=== PATIENT | female | born 1990 | race Two or more races ===

== ENCOUNTER → 2020-07-13 10:07 | Outpatient (BNVA) | payer OTHER, SELFPAY | PROVIDERS: Visit Provider Advanced Practice Midwife | DX: O34.219 Maternal care for unspecified type scar from previous cesarean delivery (principal); O16.1 Unspecified maternal hypertension, first trimester; O09.291 Supervision of pregnancy with other poor reproductive or obstetric history, first trimester; Z3A.11 11 weeks gestation of pregnancy; Z79.899 Other long term (current) drug therapy | CPT/HCPCS: 99212 ==

== ENCOUNTER 2020-07-20 10:18 | Outpatient (REF) | payer OTHER, SELFPAY ==
[2020-07-20 14:11] LABS: MANUAL DIFF FLAG NO
[2020-07-20 14:19] LABS: Basophils Percent Auto 0.3 % (0-2); Eosinophils Absolute Auto 0.1 X10*3/uL (0.0-0.4); Eosinophils Percent Auto 0.6 % (0-4); Hematocrit 33.8 % (37-47); Hemoglobin 11.1 g/dl (12.0-16.0); Imm Gran Abs Auto 0.05 X10*3/uL (0.00-0.03); Imm Gran Pct Auto 0.4 % (0.0-0.4); Lymphocytes Absolute Auto 2.5 X10*3/uL (1.2-4.9); Mean Corpuscular HGB Conc 32.8 g/dl (31.0-35.0); Mean Corpuscular Hemoglobin 29.1 pg (27.0-33.0); Mean Corpuscular Volume 88.5 fL (80-98); Mean Platelet Volume 11.7 fL (9.4-12.3); Monocytes Absolute Auto 0.8 X10*3/uL (0.1-1.2); Monocytes Percent Auto 5.4 % (2-11); Neutrophils Absolute Auto 10.5 X10*3/uL (2.0-8.3); Neutrophils Percent Auto 75.3 % (45-73); Platelet Count 415 X10*3/uL (160-400); Red Blood Count 3.82 X10*6/uL (4.20-5.50); Red Cell Distribution Width 12.7 % (11.0-16.0)
[2020-07-20 14:48] LABS: Alanine Aminotransferase 21 U/L (0-31); Albumin Level 4.4 g/dL (3.5-5.0); Alkaline Phosphatase 85 U/L (39-117); Anion Gap 18 (12-20); Aspartate Amino Transferase 19 U/L (5-31); Bilirubin Total 0.6 mg/dL (0.0-1.0); Blood Urea Nitrogen 6 mg/dL (9-16); Calcium 9.6 mg/dL (8.4-10.2); Carbon Dioxide 20 mmol/L (22-29); Chloride 103 mmol/L (96-108); Estimated Glomerular Filt Rate > 60; Glucose Random 75 mg/dL (60-115); Potassium 4.1 mmol/l (3.3-5.1); Sodium 137 mmol/L (135-145); Total Protein 7.7 g/dL (6.5-8.0)
[2020-07-20 14:58] LABS: Syphilis Screen Nonreactive (Nonreactive)
[2020-07-20 15:02] LABS: Uric Acid 3.5 mg/dL (2.4-5.7)
[2020-07-20 15:14] LABS: Creatinine Urine 91.75 mg/dL; Protein/Creatinine Ratio, Ur 0.13 (<0.2); Total Protein Urine Random 12 mg/dL (<12)
[2020-07-20 15:16] LABS: Amphetamine Screen Urine Not Detected (Not Detect); Barbiturates, Urine Not Detected (Not Detect); Benzodiazepines Screen Urine Not Detected (Not Detect); Cannabinoid Screen Urine Not Detected (Not Detect); Cocaine Screen Urine Not Detected (Not Detect); Opiate Screen Urine Not Detected (Not Detect); Phencyclidine Screen Urine Not Detected (Not Detect)
[2020-07-20 16:16] LABS: CT PCR NOT DETECTED (Not Detect.); NG PCR NOT DETECTED (Not Detect.)
[2020-07-23 03:40] LABS: ~HepC Num1 0.11 S/CO (0.00-0.79); ~Hepatitis C Antibody Nonreactive (Nonreactive)
[2020-07-23 04:10] LABS: HBsAGNum1 0.19 S/CO (0.00-0.99); HIV AB/AG Nonreactive (Nonreactive); Hepatitis B Surface Antigen Negative (Negative)
[2020-07-23 13:42] LABS: Rubella IgG Antibody 4.18 index
== END 2020-07-20 10:19 | disposition home or self-care (01) ==
LOC: HO.LAB 10:18
PROVIDERS: Visit Provider Advanced Practice Midwife
DX: Z34.90 Encounter for supervision of normal pregnancy, unspecified, unspecified trimester (principal); Z86.79 Personal history of other diseases of the circulatory system
CPT/HCPCS: 36415; 80053; 80307; 84156; 84443; 84550; 85025; 86762; 86780; 86787; 86803; 86850; 86886; 86900; 86901; 87086; 87340; 87389; 87491; 87591

== ENCOUNTER 2020-07-20 11:03 | Outpatient (REF) | payer OTHER, SELFPAY ==
--- NOTE | 2020-07-20 11:08 | US_ITS ---
EXAMINATION: OBSTETRICAL ULTRASOUND, FIRST TRIMESTER HISTORY: 29-year-old at the 12.1 weeks of gestation NT screening COMPARISON: 04/08/2020 TECHNIQUE: Real time transabdominal imaging with color and M-mode Doppler. FINDINGS: A single, live IUP CRL of 60.4 mm c/w 12.4wks is noted. Heart Rate: 153 beats per minute. Normal yolk sac seen. NT was 1.32.mm. NB Present The embryo appears sonographically wnl for this GA. Both maternal ovaries are seen and appear normal. GESTATIONAL AGE: 1. Established GA: 12.1 wks 2. GA from [facility]: 12.4 wks ESTIMATED DATE OF DELIVERY: 1. Established ALBINA: 01/31/2021 2. ALBINA from [facility]: 01/28/2021 US/US OB 1T nuc measure IMPRESSION: 1. Single live IUP 2. Size equals dates 3. NT of 1.32 mm MFM Consultation: I reviewed the ultrasound findings along with significance of NT measurement. The NT of less than 3mm is generally reassuring. However, the sensitivity for T21 detection is only 60%. I reviewed the availability of serum aneuploidy screening which includes cell-free DNA and placental protein based tests. I discussed the sensitivity, false-positive rate, and other limitations associated with each test. I also reviewed the availability of invasive diagnostic tests that are associated small but definite risk of miscarriage. We also reviewed the differences between screening tests and diagnostic tests. After our discussion, she opted for the First trimester screening that is based on cell-free DNA or non-invasive testing (NIPT). The result will be faxed to your office in approximately 7 days. A follow up at 18 weeks for survey has been scheduled. Thank you very much for this referral. Majority of this visit was spent reviewing her care and counselling her in face to face time: Time spent 20 min.
== END 2020-07-20 11:04 | disposition home or self-care (01) ==
LOC: HO.US 11:03
PROVIDERS: PCP Internal Medicine; Visit Provider Advanced Practice Midwife
DX: Z34.90 Encounter for supervision of normal pregnancy, unspecified, unspecified trimester (principal); Z86.79 Personal history of other diseases of the circulatory system; Z36.82 Encounter for antenatal screening for nuchal translucency; Z13.31 Encounter for screening for depression
CPT/HCPCS: 76813; 99212

== ENCOUNTER 2020-08-08 09:29 | Emergency (ER) | payer OTHER, SELFPAY ==
[2020-08-08 10:25] VITALS: BP 167/92; PULSE 100; RESP 20; TEMP 36.6; O2SAT 99; BMI 43.2
--- NOTE | 2020-08-08 10:45 | ED.URI ---
HPI - URI/Sore Throat General Chief Complaint: Weakness Stated Complaint: difficulty breathing Time Seen by Provider: 08/08/20 10:04 Source: patient Mode of arrival: ambulatory Limitations: no limitations History of Present Illness MD elicited complaint: cough, rhinorrhea and other (feels fatigued and short of breath) Pertinent past history: other (14 weeks ) Onset (ago): day(s) (3) Consistency: constant Severity: moderate Description of mucous: clear Able to tolerate fluids by mouth: Yes Exacerbating factors: nothing Relieving factors: nothing Context: sick contacts (daughter with cold as well) Associated symptoms: chills, rhinorrhea, cough and shortness of breath Treatments prior to arrival: other (used her neb machine today) Related Data Home Medications Medication Instructions Recorded Confirmed PNV 153-FA 400 mcg-om3 35 mg-dha tab PO 07/13/20 07/20/20 25 mg-epa 5 mg-fish oil chew tablet amlodipine 10 mg tablet 10 mg PO DAILY 07/13/20 07/20/20 fluticasone propionate 110 2 puff INHALATION BID 07/13/20 07/20/20 mcg/actuation HFA aerosol inhaler loratadine 10 mg tablet 10 mg PO DAILY 07/13/20 07/20/20 sertraline 50 mg tablet 50 mg PO DAILY 07/13/20 07/20/20 Previous Rx's Medication Instructions Recorded aspirin 81 mg tablet,delayed 162 mg PO DAILY #60 tab 07/20/20 release amoxicillin 500 mg PO BID 7 Days #14 cap 08/08/20 Allergies Allergy/AdvReac Type Severity Reaction Status Date / Time fluticasone [Flovent HFA] Allergy Unknown face Verified 07/20/20 10:04 numbness Review of Systems Review of Systems: Constitutional : no Fever, positive Chills, positive fatigue, positive Malaise ENT/Mouth : no sore throat, positive runny nose Eyes: No Discharge Cardiovascular : No Chest Pain, pos SOB Respiratory : pos Cough, No Sputum Gastrointestinal : No Nausea, No Vomiting, No Diarrhea Genitourinary : No Dysuria, No Urinary Frequency Musculoskeletal : positive Myalgia Skin : No rash Neuro : No Headache PMFSH Past Medical History Attestation statement: The following information was validated with the patient. Medical History History of anxiety History of asthma History of depression Hx of primary hypertension Morbid obesity with BMI of 40.0-44.9, adult Surgical History Hx of section Hx of cholecystectomy Hx of removal of cyst Hx of wisdom tooth extraction Family History Family History Mother Hx of primary hypertension History of fibromyalgia History of anxiety Hx of irritable bowel syndrome Family/Other Hx of primary hypertension History of posttraumatic stress disorder (PTSD) Family history of MS (multiple sclerosis) Maternal Grandmother Hx of diabetes mellitus Maternal Grandfather Hx of cancer of lung Paternal Grandfather Hx of aortic valve replacement, mechanical Hx of cardiac pacemaker Paternal Grandmother Hx of primary hypertension Brother No problems noted. Sister No problems noted. Social History Social History Household Members: Spouse and Children Housing: Apartment Alcohol intake: former Smoking Status: Never smoker Substance Use Type: Amphetamines and Marijuana Advance Directives: No Advance Directives Information Provided: Yes Current occupational status: employed Current occupation: [employer] Current occupational exposures/hazards: No Physical Exam Vital Signs: Vital Signs: Last Vital Signs Temp 97.9 F 08/08/20 10:25 Pulse 100 08/08/20 10:25 Resp 20 08/08/20 10:25 BP 167/92 H 08/08/20 10:25 Pulse Ox 99 08/08/20 10:25 Body Mass Index 43.2 Appearance: Alert. Oriented X3. No acute distress. anxious Eyes: Pupils equal, round and reactive to light. ENT: Pharynx normal. Neck: Normal inspection. Neck supple. CVS: Normal heart rate and rhythm. Pulses normal. Respiratory: No respiratory distress. Breath sounds normal. Abdomen: Soft and nontender. Skin: Skin warm and dry. Normal skin color. Normal skin turgor. Extremities: No lower extremity edema. No calf ttp Neuro: Oriented X 3. No motor deficit. No sensory deficit. Course Course Course Narrative: no hypoxia, feels much better, will treat as sinus infection Procedures Procedure Narrative Procedure Narrative: transabdominal bedside US by me shows single viable IUP with cardiac activity as well as movement MDM - URI/Sore Throat MDM Narrative Medical decision making narrative: 30 yo female with asthma 14 weeks here with URI - daughter has cold as well, had COVID swab but is taking 1 week to result, at this time given complaints will obtain UA, CXR, covid/flu swab - she is not hypoxic, I do not hear wheezes, will repeat BP as well though early for pre-eclampsia, no edema LE, no chest pain doubt PE seems more viral in nature Lab Data Labs: Lab Results 08/08/20 08/08/20 Range/Units 11:24 11:24 Urine Color YELLOW Urine Appearance CLEAR Urine pH 7.0 (5.0-8.0) Ur Specific [place] 1.010 (1.005-1.025) Urine Protein NEG (NEG-TRACE) MG/DL Urine Glucose (UA) NEG (NEG) MG/DL Urine Ketones NEG (NEG) MG/DL Urine Blood NEG (NEG) Urine Nitrite NEG (NEG) Ur Leukocyte Esterase NEG (NEG) Coronavirus (PCR) NEGATIVE (Negative) Influenza Type A (PCR) NEGATIVE (Negative) Influenza Type B (PCR) NEGATIVE (Negative) RSV RNA Qual (PCR) NEGATIVE (Negative) Discharge Plan Discharge Clinical Impression: Acute viral syndrome Sinusitis Qualifiers: Sinusitis location: unspecified location Chronicity: acute Recurrence: non-recurrent Qualified Code(s): J01.90 - Acute sinusitis, unspecified Patient Disposition: Home, Self-Care Instructions: Sinusitis (ED) Additional Instructions: return to ED for any worsening symptoms or concerns it is safe to use saline washes and benadryl for congestion Prescriptions: New amoxicillin 500 mg capsule 500 mg PO BID 7 Days Qty: 14 RF: 0 No Action aspirin [Adult Low Dose Aspirin] 81 mg tablet,delayed release (DR/EC) 162 mg PO DAILY Qty: 60 RF: 6 Flovent HFA 110 mcg/actuation HFA aerosol inhaler 2 puff inhalation BID RF: 0 loratadine [Claritin] 10 mg tablet 10 mg PO DAILY RF: 0 sertraline 50 mg tablet 50 mg PO DAILY RF: 0 Gummies 400 mcg-35 mg- 25 mg-5 mg tablet,chewable PO RF: 0 amlodipine 10 mg tablet 10 mg PO DAILY RF: 0 Referrals: Evelyn Griffith MD [Primary Care Provider] - 2 days (if not better) Stand Alone Forms: Work/School Release
--- NOTE | 2020-08-08 10:56 | XR_ITS ---
EXAMINATION: XR CHEST CLINICAL INFORMATION: Cough. COMPARISON: 02/26/2020 portable chest. TECHNIQUE: Frontal view of the chest was obtained. FINDINGS: No significant abnormality is noted involving the heart, lungs, mediastinum, bony thorax or soft tissues. XR/XR chest 1V IMPRESSION: No acute cardiopulmonary process.
[2020-08-08] MEDS: Acetaminophen 325 MG TABLET 650 MG PO (11:13)
[2020-08-08 11:35] LABS: Glucose Urine UA NEG (NEG); Leukocyte Esterase Urine NEG (NEG); Nitrite Urine NEG (NEG); Urine Blood NEG (NEG); Urine Ketones NEG (NEG); Urine Protein NEG (NEG-TRACE)
[2020-08-08 11:39] LABS: Appearance Urine CLEAR; Color Urine YELLOW; UACC Culture Trigger NO
[2020-08-08 12:00] VITALS: BP 146/93; PULSE 95; RESP 20; TEMP 36.6; O2SAT 99
[2020-08-08 12:11] LABS: Influenza A PCR NEGATIVE (Negative); Influenza B PCR NEGATIVE (Negative); Resp Syncy Virus RNA Qual PCR NEGATIVE (Negative); SARS COV2 PCR INHOUSE NEGATIVE (Negative)
== END 2020-08-08 12:51 | disposition home or self-care (01) ==
PROVIDERS: Emergency Provider Emergency Medicine; PCP Internal Medicine
DX: O26.91 Pregnancy related conditions, unspecified, first trimester (principal); B34.9 Viral infection, unspecified; J01.90 Acute sinusitis, unspecified; R05 Cough; Z3A.14 14 weeks gestation of pregnancy; Z20.828 Contact with and (suspected) exposure to other viral communicable diseases; Z79.899 Other long term (current) drug therapy
CPT/HCPCS: 0241U; 71045; 81003; 99284

== ENCOUNTER → 2020-08-21 11:46 | Outpatient (BNVA) | payer OTHER, SELFPAY | PROVIDERS: PCP Internal Medicine; Visit Provider Advanced Practice Midwife | DX: Z76.89 Persons encountering health services in other specified circumstances (principal) ==

== ENCOUNTER 2020-08-31 09:28 | Outpatient (REF) | payer OTHER, SELFPAY ==
[2020-08-31 13:28] LABS: Glucose Urine UA NEG (NEG); Leukocyte Esterase Urine NEG (NEG); Nitrite Urine NEG (NEG); Specific Gravity - Urine 1.025 (1.005-1.025); Urine Blood NEG (NEG); Urine Ketones 5 MG/DL (NEG); Urine Protein NEG (NEG-TRACE)
[2020-08-31 13:29] LABS: Glucose 1 Hour 110 mg/dL
[2020-08-31 13:37] LABS: Appearance Urine HAZY; Color Urine YELLOW
[2020-08-31 13:38] LABS: Alanine Aminotransferase 14 U/L (0-31); Aspartate Amino Transferase 17 U/L (5-31); Blood Urea Nitrogen 5 mg/dL (9-16); Estimated Glomerular Filt Rate > 60
== END 2020-08-31 09:29 | disposition home or self-care (01) ==
LOC: HO.LAB 09:28
PROVIDERS: Absent Provider Advanced Practice Midwife; Visit Provider Advanced Practice Midwife
DX: O09.299 Supervision of pregnancy with other poor reproductive or obstetric history, unspecified trimester (principal); Z86.79 Personal history of other diseases of the circulatory system; Z86.59 Personal history of other mental and behavioral disorders; Z98.891 History of uterine scar from previous surgery
CPT/HCPCS: 81003; 82565; 82951; 84450; 84460; 84520; 86850; 86870; 86885; 86901; 99212

== ENCOUNTER → 2020-09-13 09:49 | Outpatient (BNVA) | payer OTHER, SELFPAY | PROVIDERS: Visit Provider Obstetrics & Gynecology | DX: Z34.90 Encounter for supervision of normal pregnancy, unspecified, unspecified trimester (principal) | CPT/HCPCS: 99212 ==

== ENCOUNTER 2020-09-27 09:42 | Outpatient (REF) | payer OTHER, SELFPAY ==
[2020-09-27 12:50] LABS: TSH reflex Free T4 (Prenatal) 0.72 mIU/mL (0.32-4.0)
== END 2020-09-27 09:43 | disposition home or self-care (01) ==
LOC: HO.LAB 09:42
PROVIDERS: PCP Family Medicine; Visit Provider Advanced Practice Midwife
DX: O09.899 Supervision of other high risk pregnancies, unspecified trimester (principal); Z67.91 Unspecified blood type, Rh negative
CPT/HCPCS: 36415; 81003; 86850; 99212

== ENCOUNTER 2020-09-28 09:40 | Outpatient (REF) | payer OTHER, SELFPAY ==
--- NOTE | 2020-09-28 09:46 | US_ITS ---
EXAMINATION: US OBSTETRICAL CLINICAL INFORMATION: 30-year-old at 22.5 weeks of gestation Suspected anomaly COMPARISON: 08/08/2020 TECHNIQUE: Real-time transabdominal ultrasound was performed using C1-5 megahertz transducer. FINDINGS: A single, active, fetus is seen in transverse presentation. The placenta is posterior without previa, and the amniotic fluid volume is wnl. MEASUREMENTS: 1. Biparietal Diameter: 5.3 cm; 22.0 wks 2. Occipital Frontal Diameter: 7.2 cm 3. Head Circumference: 20.1 cm; 22.3 wks 4. Abdominal Circumference: 17.7 cm; 22.5 wks 5. Femur Length: 4.2 cm; 23.4 wks 6. Humerus Length: 3.83 cm; 23.4 wks 7. Tibia Length: 3.8 cm; 24.3 wks 8. Ulna Length: 3.8 cm; 5.1 wks 9. Lateral ventricle: O.42 cm 10. Cerebellum: 2.3 cm; 22.5 wks 11. Cisterna Magna: O.51 cm 12. Nuchal Fold: 3.9 mm 13. Heart Rate: 140 beats per minute Rt ovary: normal Lt ovary: Unable to visualize Cervical length 3.9 cm on T/A. GESTATIONAL AGE: 1. Established GA: 22.1 wks 2. GA from [facility]: 22.5 wks ESTIMATED DATE OF DELIVERY: 1. Established ALBINA: 01/27/2021 2. ALBINA from [facility]: 01/31/2021 ANATOMY: Anatomic survey was limited due to position. Evaluation of the four-chamber view, ventricular septum, 3 vessel trachea, kidneys, spine were suboptimal. The visualized anatomy includes but not limited to: 1. Cranium: Normal 2. Intracranial anatomy: cavum septum pellucidi, lateral ventricles, choroid plexus, cerebellum, posterior fossa, third and fourth ventricles. 3. face: orbits, lip/palate, profile, nasal bone 4. Heart: foramen ovale, pulmonary vein, left and right outflow tracts, three-vessel view, 3 vessel trachea view, aortic and ductal arches, situs.. 5. Diaphragm: Normal 6. Abdominal wall: Normal 7. Cord Insertion: Normal 8. Spine: Limited 9. Stomach: Normal size and shape 10. Right Kidney: Limited 11. Left Kidney: Limited 12. 3 vessel cord: Normal 13. Upper extremity: Open hands, fifth digit. 14. Lower extremity: Tibia, fibula, bilateral feet. 15. Bladder: Normal 16. Genitalia: Male, patient aware US/US OB /maternal detail IMPRESSION: 1. Single, living, intrauterine with appropriate biometry. 2. Normal survey DISCUSSION: I reviewed today's ultrasound findings. We discussed the limitations of ultrasound in diagnosing aneuploidy and other congenital abnormalities. I reviewed the differences between screening test and diagnostic test. Amniocentesis was discussed and declined. She was informed that the baseline incidence of congenital abnormalities is approximately 3-5%. Not all these conditions are diagnosable in utero. RECOMMENDATIONS: 1. Follow-up in 2 weeks has been scheduled. Thank you for allowing me to participate in her care. Total time: 20 minutes (2, 10, 8)
== END 2020-09-28 09:41 | disposition home or self-care (01) ==
LOC: HO.US 09:40
PROVIDERS: PCP Emergency Medicine; Visit Provider Advanced Practice Midwife
DX: O35.9XX0 Maternal care for (suspected) fetal abnormality and damage, unspecified, not applicable or unspecified (principal); O26.892 Other specified pregnancy related conditions, second trimester; Z67.91 Unspecified blood type, Rh negative; O99.342 Other mental disorders complicating pregnancy, second trimester; F99 Mental disorder, not otherwise specified; Z3A.22 22 weeks gestation of pregnancy
CPT/HCPCS: 76811

== ENCOUNTER → 2020-10-11 10:29 | Outpatient (BNVA) | payer OTHER, SELFPAY | PROVIDERS: PCP Family Medicine; Visit Provider Advanced Practice Midwife | DX: Z34.92 Encounter for supervision of normal pregnancy, unspecified, second trimester (principal) | CPT/HCPCS: 81003; 99212 ==

== ENCOUNTER 2020-10-12 09:12 | Outpatient (REF) | payer OTHER, SELFPAY ==
--- NOTE | ~2020-10-12 | US_ITS ---
EXAMINATION: OBSTETRICAL ULTRASOUND, Follow up HISTORY: 30-year-old at the 24.1 weeks of gestation Follow-up survey COMPARISON: 09/28/2019 TECHNIQUE: Real time transabdominal imaging with color and M-mode Doppler. PRESENTATION: Breech PLACENTA LOCATION: Posterior without previa AMNIOTIC FLUID: Normal MEASUREMENTS: 1. Biparietal Diameter: 5.92 cm; 24.2 wks 2. Head Circumference: 23.1 cm; 25.2 wks 3. Abdominal Circumference: 20.6 cm; 25.2 wks 4. Femur Length: 4.7 cm; 25.6 wks 5. Heart Rate: 138 beats per minute WEIGHT: Estimated weight is 798 grams (1 lbs 12 oz) -- 90 %. Bilateral pyelectasis ease were noted. The both measured approximately 0 7 mm. No evidence of hydroureter. Normal urinary bladder. Normal views of lateral cerebral ventricle, profile, nose/lips, 4ch view, LVOT, RVOT, spine. GESTATIONAL AGE: 1. Established GA: 24.1 wks 2. GA from [facility]: 25.2 wks ESTIMATED DATE OF DELIVERY: 1. Established ALBINA: 01/31/2021 2. ALBINA from [facility]: 01/23/2021 US/US OB follow up IMPRESSION: 1. A single fetus with appropriate interval growth. 2. Bilateral pyelectasis ease were noted. No evidence of hydronephrosis. 3. Previously limited views of the anatomy were seen as listed above. I reviewed the limitations of ultrasound in diagnosing aneuploidy and other congenital abnormalities. Amniocentesis was again reviewed and she declined. 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 I reviewed the nature, scope and approximate prognosis and management of UPJ reflux. I reassured her that the more than 90% UPJ reflux will resolve spontaneously either before delivery or within first 3 months of life. She was informed that the baseline instance of congenital abnormalities and defects in the general population is approximately 3-5%. Not all these conditions are diagnosable in utero. RECOMMENDATIONS: 1. f/u in approximately 4 weeks for growth and evaluation pyelectasis (scheduled) Thank you very much for this referral. Total time 30 (5,18,7) minutes.
== END 2020-10-12 09:13 | disposition home or self-care (01) ==
LOC: HO.US 09:12
PROVIDERS: PCP Family Medicine; Visit Provider Advanced Practice Midwife
DX: O09.899 Supervision of other high risk pregnancies, unspecified trimester (principal); Z3A.00 Weeks of gestation of pregnancy not specified
CPT/HCPCS: 76816

== ENCOUNTER → 2020-10-19 09:22 | Outpatient (BNVA) | payer OTHER, SELFPAY | PROVIDERS: PCP Family Medicine; Visit Provider Advanced Practice Midwife | DX: O09.299 Supervision of pregnancy with other poor reproductive or obstetric history, unspecified trimester (principal); Z86.79 Personal history of other diseases of the circulatory system | CPT/HCPCS: 99212 ==

== ENCOUNTER → 2020-10-25 10:27 | Outpatient (BNVA) | payer OTHER, SELFPAY | PROVIDERS: PCP Family Medicine; Visit Provider Obstetrics & Gynecology | DX: O09.292 Supervision of pregnancy with other poor reproductive or obstetric history, second trimester (principal); O34.211 Maternal care for low transverse scar from previous cesarean delivery; O99.342 Other mental disorders complicating pregnancy, second trimester; F41.8 Other specified anxiety disorders; O16.2 Unspecified maternal hypertension, second trimester; O99.212 Obesity complicating pregnancy, second trimester; E66.9 Obesity, unspecified; Z3A.26 26 weeks gestation of pregnancy; Z79.899 Other long term (current) drug therapy | CPT/HCPCS: 99212 ==

== ENCOUNTER 2020-10-30 08:54 | Outpatient (REF) | payer OTHER, SELFPAY ==
[2020-10-30 11:29] LABS: Glucose 1 Hour 125 mg/dL
== END 2020-10-30 08:55 | disposition home or self-care (01) ==
LOC: HO.LAB 08:54
PROVIDERS: Visit Provider Obstetrics & Gynecology
DX: Z34.92 Encounter for supervision of normal pregnancy, unspecified, second trimester (principal)
CPT/HCPCS: 36415; 82951

== ENCOUNTER → 2020-11-08 11:06 | Outpatient (BNVA) | payer OTHER, SELFPAY | PROVIDERS: Visit Provider Obstetrics & Gynecology | DX: Z34.92 Encounter for supervision of normal pregnancy, unspecified, second trimester (principal) | CPT/HCPCS: 99212 ==

== ENCOUNTER 2020-11-09 09:33 | Outpatient (REF) | payer OTHER, SELFPAY ==
--- NOTE | ~2020-11-09 | US_ITS ---
EXAMINATION: OBSTETRICAL ULTRASOUND, Follow up HISTORY: 30-year-old at the 28.1 weeks of gestation Size date discrepancy pyelectasis COMPARISON: 10/12/2020 TECHNIQUE: Real time transabdominal imaging with color and M-mode Doppler. PRESENTATION: Vertex PLACENTA LOCATION: Posterior without previa AMNIOTIC FLUID: Within normal limits MEASUREMENTS: 1. Biparietal Diameter: 7.4 cm; 29.4 wks 2. Head Circumference: 26.23 cm; 28.4 wks 3. Abdominal Circumference: 25.29 cm; 29.4 wks 4. Femur Length: 5.5 cm; 29.2 wks 5. Heart Rate: 140 beats per minute Small fibroid 3.3 x 1.0 x 2.0 cm WEIGHT: EFW: 1369 grams (3 lbs 0 oz) -- 81 %. Right renal pelvis is measuring 6 mm in the left 5 mm. Ureters are not visible. Urinary bladder is within normal limits. The finding is suggestive of UPJ reflux. BIOPHYSICAL PROFILE: Motion: 2 Tone: 2 Breathin Amniotic Fluid: 2 Total score: 8/8 GESTATIONAL AGE: 1. Established GA: 28.1 wks 2. GA from [facility]: 29.2 wks ESTIMATED DATE OF DELIVERY: 1. Established ALBINA: 01/31/2021 2. ALBINA from [facility]: 01/23/2021 US/US OB follow up IMPRESSION: 1. A single active fetus in vertex presentation 2. Size equals dates 3. Persistent bilateral pyelectasis ease. 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 Small fibroid I reviewed today's findings. The pyelectasis is appears stable. There is no evidence of hydroureter. Today's ultrasound findings are suggestive of UPJ reflux. We reviewed the approximate prognosis and management of UPJ reflux during last visit. In all likelihood that pediatric renal ultrasound may be indicated. For now she is to return in 4 weeks. Thank you very much for this referral. Visiting time 30 minutes. Majority of this visit was spent reviewing and coordinating her care.
== END 2020-11-09 09:34 | disposition home or self-care (01) ==
LOC: HO.US 09:33
PROVIDERS: Visit Provider Advanced Practice Midwife
DX: O26.843 Uterine size-date discrepancy, third trimester (principal); O99.891 Other specified diseases and conditions complicating pregnancy; N13.30 Unspecified hydronephrosis; O09.891 Supervision of other high risk pregnancies, first trimester; Z3A.28 28 weeks gestation of pregnancy
CPT/HCPCS: 76816

== ENCOUNTER → 2020-11-28 10:49 | Outpatient (BNVA) | payer OTHER, SELFPAY | PROVIDERS: Visit Provider Obstetrics & Gynecology | DX: Z34.92 Encounter for supervision of normal pregnancy, unspecified, second trimester (principal); Z3A.30 30 weeks gestation of pregnancy | CPT/HCPCS: 90471; 99212 ==

== ENCOUNTER 2020-12-07 08:50 | Outpatient (REF) | payer OTHER, SELFPAY ==
--- NOTE | ~2020-12-07 | US_ITS ---
EXAMINATION: OBSTETRICAL ULTRASOUND, Follow up HISTORY: 21-year-old at 32.1 weeks of gestation pyelectasis Size date discrepancy COMPARISON: 11/09/2020 TECHNIQUE: Real time transabdominal imaging with color and M-mode Doppler. PRESENTATION: Breech PLACENTA LOCATION: Posterior without previa AMNIOTIC FLUID: DARIO 27.1 cm MEASUREMENTS: 1. Biparietal Diameter: 8.3 cm; 33.2 wks 2. Head Circumference: 31.1 cm; 34.6 wks 3. Abdominal Circumference: 29.1 cm; 33.1 wks 4. Femur Length: 6.3 cm; 32.4 wks 5. Heart Rate: 129 beats per minute WEIGHT: EFW: 2119 grams (4 lbs 11 oz) -- 70 %. BIOPHYSICAL PROFILE: Motion: 2 Tone: 2 Breathin Amniotic Fluid: 2 Total score: 8/8 Right renal pelvis measured 6 mm and the left 5 mm. These are stable findings compared to previous exam. No hydroureter or caliectasis noted. Normal urinary bladder. GESTATIONAL AGE: 1. Established GA: 32.1 wks 2. GA from [facility]: 33.4 wks ESTIMATED DATE OF DELIVERY: 1. Established ALBINA: 01/31/2021 2. ALBINA from [facility]: 01/21/2021 US/US OB follow up IMPRESSION: 1. A single active fetus is in breech presentation 2. Size equals dates 3. Polyhydramnios with DARIO of 27.1 cm. 4. BPP score 8/8 I informed the patient that the renal pelvises sees are stable and measuring within normal range for this gestational age. However the DARIO is increased. The majority of polyhydramnios cases are a normal variant and idiopathic. The most common etiology is maternal glucose intolerance. Her 1 hour GLT is to be done today. Thank you very much for this referral. At this time follow-up ultrasound has not been scheduled. Total time 20 minutes. The time spent was devoted to counseling the patient about the disease and diagnosis, coordinating care including reviewing her records, pertinent lab data and studies, as well as discussing diagnostic evaluation and workup, plan therapeutic interventions and future disposition of care. This includes any additional research needed to obtain further information in formulating the plan of care of this patient. This note was generated with a voice recognition program. Please excuse any errors which may have been overlooked during my review of this note. Sometimes these errors may affect the content or meaning of a given sentence.
[2020-12-07 10:36] LABS: MANUAL DIFF FLAG NO
[2020-12-07 10:43] LABS: Basophils Percent Auto 0.2 % (0-2); Eosinophils Absolute Auto 0.1 X10*3/uL (0.0-0.4); Eosinophils Percent Auto 0.4 % (0-4); Hematocrit 29.6 % (37-47); Hemoglobin 9.8 g/dl (12.0-16.0); Imm Gran Abs Auto 0.11 X10*3/uL (0.00-0.03); Imm Gran Pct Auto 0.7 % (0.0-0.4); Lymphocytes Percent Auto 13.8 % (20-40); Mean Corpuscular HGB Conc 33.1 g/dl (31.0-35.0); Mean Corpuscular Volume 84.6 fL (80-98); Mean Platelet Volume 10.8 fL (9.4-12.3); Monocytes Percent Auto 6.5 % (2-11); Neutrophils Absolute Auto 11.6 X10*3/uL (2.0-8.3); Neutrophils Percent Auto 78.4 % (45-73); Platelet Count 451 X10*3/uL (160-400); Red Cell Distribution Width 14.1 % (11.0-16.0); White Blood Count 14.8 X10*3/uL (4.8-10.8)
[2020-12-07 11:02] LABS: Glucose 1 Hour PP 50gm Dose 103 mg/dL (60-140)
[2020-12-07 11:24] LABS: Syphilis Screen Nonreactive (Nonreactive)
== END 2020-12-07 08:51 | disposition home or self-care (01) ==
LOC: HO.US 08:50
PROVIDERS: Absent Provider Obstetrics & Gynecology; PCP Internal Medicine; Visit Provider Advanced Practice Midwife
DX: O35.8XX0 Maternal care for other (suspected) fetal abnormality and damage, not applicable or unspecified (principal); Z3A.32 32 weeks gestation of pregnancy
CPT/HCPCS: 36415; 76816; 85025; 86780

== ENCOUNTER → 2020-12-12 10:44 | Outpatient (BNVA) | payer OTHER, SELFPAY | PROVIDERS: PCP Internal Medicine; Visit Provider Obstetrics & Gynecology | DX: O40.9XX0 Polyhydramnios, unspecified trimester, not applicable or unspecified (principal); O09.899 Supervision of other high risk pregnancies, unspecified trimester; O35.8XX0 Maternal care for other (suspected) fetal abnormality and damage, not applicable or unspecified; Z86.79 Personal history of other diseases of the circulatory system | CPT/HCPCS: 81003; 99212 ==

== ENCOUNTER 2020-12-14 11:03 | Outpatient (REF) | payer OTHER, SELFPAY ==
--- NOTE | ~2020-12-14 | US_ITS ---
EXAMINATION: US OBSTETRICAL (BIOPHYSICAL PROFILE) CLINICAL INFORMATION: A 30-year-old at the 33.1 weeks of gestation Polyhydramnios COMPARISON: 12/07/2020 TECHNIQUE: Biophysical profile is performed over 30 minutes with assessment of breathing, gross body movement, tone, and qualitative amniotic fluid volume. FINDINGS: POSITION: Breech PLACENTA: Posterior without previa AMNIOTIC FLUID INDEX: 25.0 cm CARDIAC ACTIVITY: 128 beats per minute BIOPHYSICAL PROFILE: Motion: 2 Tone: 2 Breathin Amniotic Fluid: 2 The total biophysical score is 8/8 US/US OB biophysical profile IMPRESSION: 1. Single intrauterine gestation in breech position. 2. Reassuring BPP 3. DARIO is increased but stable. Patient reports the that she had normal 1 hour GLT. EFW last week corresponded to 70th percentile. Repeat biometry will was not done today. She reports active movements. Thank you for allowing me to participate in her care. Recommendation: 1. Continue weekly testing (scheduled) 2. Repeat EFW next week. This note was generated with a voice recognition program. Please excuse any errors which may have been overlooked during my review of this note. Sometimes these errors may affect the content or meaning of a given sentence.
== END 2020-12-14 11:04 | disposition home or self-care (01) ==
LOC: HO.US 11:03
PROVIDERS: Visit Provider Obstetrics & Gynecology
DX: O40.3XX0 Polyhydramnios, third trimester, not applicable or unspecified (principal); Z3A.33 33 weeks gestation of pregnancy
CPT/HCPCS: 76819

== ENCOUNTER → 2020-12-18 08:55 | Outpatient (BNVA) | payer OTHER, SELFPAY | PROVIDERS: Visit Provider Advanced Practice Midwife | DX: Z13.89 Encounter for screening for other disorder (principal) | CPT/HCPCS: 81003; 99212 ==

== ENCOUNTER → 2021-01-02 09:07 | Outpatient (BNVA) | payer OTHER, SELFPAY | PROVIDERS: PCP Internal Medicine; Visit Provider Advanced Practice Midwife | DX: O14.95 Unspecified pre-eclampsia, complicating the puerperium (principal); Z39.2 Encounter for routine postpartum follow-up; Z3A.35 35 weeks gestation of pregnancy | CPT/HCPCS: 99212 ==

== ENCOUNTER → 2021-01-30 09:45 | Outpatient (BNVA) | payer OTHER, SELFPAY | PROVIDERS: PCP Internal Medicine; Visit Provider Advanced Practice Midwife | DX: Z39.2 Encounter for routine postpartum follow-up (principal); O14.95 Unspecified pre-eclampsia, complicating the puerperium; E66.01 Morbid (severe) obesity due to excess calories | CPT/HCPCS: 99212 ==

== ENCOUNTER → 2021-02-08 08:44 | Outpatient (BNVA) | payer OTHER, SELFPAY | PROVIDERS: PCP Internal Medicine; Visit Provider Physician Assistant ==

== ENCOUNTER 2021-02-26 06:38 | Outpatient (REF) | payer OTHER, SELFPAY ==
[2021-02-26 07:11] LABS: Basophils Percent Auto 0.4 % (0-2); Eosinophils Absolute Auto 0.3 X10*3/uL (0.0-0.4); Eosinophils Percent Auto 2.8 % (0-4); Hematocrit 33.8 % (37-47); Hemoglobin 10.9 g/dl (12.0-16.0); Imm Gran Abs Auto 0.03 X10*3/uL (0.00-0.03); Imm Gran Pct Auto 0.3 % (0.0-0.4); Lymphocytes Absolute Auto 2.5 X10*3/uL (1.2-4.9); Lymphocytes Percent Auto 25.3 % (20-40); MANUAL DIFF FLAG NO; Mean Corpuscular HGB Conc 32.2 g/dl (31.0-35.0); Mean Corpuscular Hemoglobin 26.8 pg (27.0-33.0); Mean Platelet Volume 10.4 fL (9.4-12.3); Monocytes Absolute Auto 0.7 X10*3/uL (0.1-1.2); Neutrophils Absolute Auto 6.4 X10*3/uL (2.0-8.3); Neutrophils Percent Auto 64.2 % (45-73); Platelet Count 426 X10*3/uL (160-400); Red Blood Count 4.07 X10*6/uL (4.20-5.50); Red Cell Distribution Width 13.9 % (11.0-16.0)
[2021-02-26 07:40] LABS: Estimated Average Glucose 100 mg/dL; Hemoglobin A1c % 5.1 %
[2021-02-26 07:42] LABS: Creatinine Urine 173.06 mg/dL; Microalbum/Creatinine Ratio Ur 20.8 ug/mg cr
[2021-02-26 07:46] LABS: Alanine Aminotransferase 51 U/L (0-31); Albumin Level 4.4 g/dL (3.5-5.0); Alkaline Phosphatase 87 U/L (39-117); Anion Gap 15 (12-20); Aspartate Amino Transferase 33 U/L (5-31); Bilirubin Total 0.6 mg/dL (0.0-1.0); Blood Urea Nitrogen 15 mg/dL (9-16); C Reactive Protein 1.03 mg/dL (< or = 0.50); Calcium 9.7 mg/dL (8.4-10.2); Carbon Dioxide 22 mmol/L (22-29); Chloride 106 mmol/L (96-108); Cholesterol 243 mg/dL; Estimated Glomerular Filt Rate > 60; Glucose Fasting 102 mg/dL (60-99); HDL Cholesterol 39 mg/dL; Iron 66 mcg/dL (30-160); LDL Cholesterol Calculated 158 mg/dl; Percent Iron Saturation 14 % (15-50); Potassium 4.2 mmol/L (3.3-5.1); Sodium 139 mmol/L (135-145); Total Iron Binding Capacity 459 mcg/dL (228-428); Total Protein 7.6 g/dL (6.5-8.0); Triglycerides 233 mg/dL; Unsaturated Iron Binding 393 ug/dL
[2021-02-26 08:08] LABS: Ferritin 53 ng/mL (10-122); TSH reflex Free T4 0.47 uIU/mL (0.32-4.0); Vitamin D 25-OH Total 31.7 ng/mL (>30)
[2021-02-26 09:22] LABS: Folate 18.4 ng/mL (> or = 4.0); Vitamin B12 230 pg/mL (200-900)
[2021-02-27 12:52] LABS: Insulin Level Total 17.4 uIU/mL
[2021-02-28 13:06] LABS: Calcium (PTHI) 9.6 mg/dL (8.6-10.2); PTHI 93 pg/mL (14-64)
[2021-03-01 01:21] LABS: Zinc 78 mcg/dL (60-130)
[2021-03-01 13:52] LABS: Vitamin B1 15 nmol/L (8-30)
[2021-03-03 03:01] LABS: Vitamin A 69 mcg/dL (38-98)
== END 2021-02-26 06:39 | disposition home or self-care (01) ==
LOC: HO.LAB 06:38
PROVIDERS: Absent Provider Internal Medicine; PCP Internal Medicine; Visit Provider Physician Assistant
DX: I10 Essential (primary) hypertension (principal); E78.2 Mixed hyperlipidemia; F33.41 Major depressive disorder, recurrent, in partial remission; E66.01 Morbid (severe) obesity due to excess calories; Z68.42 Body mass index [BMI] 45.0-49.9, adult; Z78.9 Other specified health status
CPT/HCPCS: 36415; 80053; 80061; 82043; 82306; 82607; 82728; 82746; 83036; 83525; 83540; 83970; 84425; 84443; 84590; 84630; 85025; 86140

== ENCOUNTER → 2021-03-04 11:01 | Outpatient (BNVA) | payer OTHER, SELFPAY | PROVIDERS: PCP Internal Medicine; Visit Provider Dietitian, Registered | DX: E66.9 Obesity, unspecified (principal); Z68.42 Body mass index [BMI] 45.0-49.9, adult | CPT/HCPCS: 97802 ==

== ENCOUNTER → 2021-04-12 08:23 | Outpatient (BNVA) | payer OTHER, SELFPAY | PROVIDERS: PCP Internal Medicine; Visit Provider Dietitian, Registered | DX: E66.01 Morbid (severe) obesity due to excess calories (principal); Z68.42 Body mass index [BMI] 45.0-49.9, adult | CPT/HCPCS: 97803 ==

== ENCOUNTER → 2021-05-17 09:20 | Outpatient (BNVA) | payer OTHER, SELFPAY | PROVIDERS: PCP Internal Medicine; Visit Provider Dietitian, Registered | DX: E66.01 Morbid (severe) obesity due to excess calories (principal); Z68.42 Body mass index [BMI] 45.0-49.9, adult; Z88.8 Allergy status to other drugs, medicaments and biological substances; Z91.040 Latex allergy status | CPT/HCPCS: 97803 ==

== ENCOUNTER → 2021-05-31 08:48 | Outpatient (BNVA) | payer OTHER, SELFPAY | PROVIDERS: PCP Internal Medicine; Visit Provider Physician Assistant ==

== ENCOUNTER → 2021-09-17 12:46 | Outpatient (BNVA) | payer OTHER, SELFPAY | PROVIDERS: PCP Internal Medicine; Visit Provider Physician Assistant ==

== ENCOUNTER 2021-11-01 18:53 | Emergency (ER) | payer OTHER, SELFPAY ==
--- NOTE | ~2021-11-01 | CT_ITS ---
EXAMINATION: CT head/brain wo con CLINICAL INFORMATION: Reason for Exam r/o mastoiditis. L ear pain bleeding COMPARISON: None. TECHNIQUE: Contiguous axial imaging was performed from the skull base to vertex without intravenous contrast. Sagittal and coronal reformatted images were obtained. This CT examination was performed using dose optimization techniques as appropriate, variously including the following: * Automated exposure control * Adjustment of mA and/or kV according to patient size (this includes techniques or standardized protocols for targeted exams where dose is matched to indication/reason for exam; i.e. extremities or head) Use of iterative reconstruction technique DLP: 725 mGy-cm FINDINGS: No acute osseous or soft tissue abnormality. The mastoid air cells without findings of mastoiditis and visualized portions of the paranasal sinuses are well aerated. There is no evidence of acute intracranial hemorrhage or territorial infarction. No abnormal mass effect or midline shift is seen. Gonzalez to white matter differentiation is well preserved. No extra-axial fluid collections are identified. No hydrocephalus. CT/CT head/brain wo con IMPRESSION: 1. No acute intracranial abnormality. Mastoid air cells are well aerated without findings of mastoiditis.
--- NOTE | ~2021-11-01 | XR_ITS ---
EXAMINATION: XR CHEST CLINICAL INFORMATION: Left chest wall pain/left shoulder pain. COMPARISON: Chest radiograph dated from 08/08/2020. TECHNIQUE: 2 views of the chest were obtained. FINDINGS: Normal appearance of the cardiomediastinal silhouette. No focal airspace opacities, pleural effusions or pneumothorax. No acute osseous abnormalities. Visualized upper abdomen is within normal limits. XR/XR chest 2V IMPRESSION: No acute cardiopulmonary findings. No acutely displaced rib fractures. However, if rib fractures are suspected, recommend further evaluation with a complete rib cage radiographic series.
--- NOTE | 2021-11-01 19:20 | ECG_ITS ---
Test Reason : NECK /EAR PAIN Blood Pressure : / mmHG Vent. Rate : 081 BPM Atrial Rate : 081 BPM P-R Int : 160 ms QRS Dur : 092 ms QT Int : 428 ms P-R-T Axes : 055 016 009 degrees QTc Int : 497 ms Normal sinus rhythm Minimal voltage criteria for LVH, may be normal variant ( R in aVL ) Inferior infarct , age undetermined Cannot rule out Anterior infarct (cited on or before 26-FEB-2020) Abnormal ECG When compared with ECG of 26-FEB-2020 19:52, No significant change was found Referred By: Tanya Díaz Electronically Signed By:Swapnil David
[2021-11-01 19:52] VITALS: BP 145/91; PULSE 93; RESP 18; TEMP 36.9; O2SAT 100
[2021-11-01 19:55] VITALS: BMI 44.9
[2021-11-01 19:55] LABS: MANUAL DIFF FLAG NO
[2021-11-01 19:57] LABS: Basophils Percent Auto 0.3 % (0-2); Eosinophils Absolute Auto 0.3 X10*3/uL (0.0-0.4); Eosinophils Percent Auto 2.3 % (0-4); Hemoglobin 12.6 g/dl (12.0-16.0); Imm Gran Abs Auto 0.03 X10*3/uL (0.00-0.03); Imm Gran Pct Auto 0.3 % (0.0-0.4); Lymphocytes Absolute Auto 3.2 X10*3/uL (1.2-4.9); Lymphocytes Percent Auto 27.9 % (20-40); Mean Corpuscular HGB Conc 34.1 g/dl (31.0-35.0); Mean Corpuscular Hemoglobin 28.6 pg (27.0-33.0); Mean Corpuscular Volume 83.9 fL (80.0-98.0); Mean Platelet Volume 10.5 fL (9.4-12.3); Monocytes Absolute Auto 0.8 X10*3/uL (0.1-1.2); Monocytes Percent Auto 7.1 % (2-11); Neutrophils Absolute Auto 7.2 x10*3/uL (2.0-8.3); Neutrophils Percent Auto 62.1 % (45-73); Platelet Count 390 X10*3/uL (160-400); Red Blood Count 4.41 X10*6/uL (4.20-5.50); Red Cell Distribution Width 12.8 % (11.0-16.0); White Blood Count 11.6 X10*3/uL (4.8-10.8)
[2021-11-01 20:12] LABS: Alanine Aminotransferase 53 U/L (0-31); Albumin Level 4.6 g/dL (3.5-5.0); Alkaline Phosphatase 98 U/L (39-117); Anion Gap 14 (12-20); Aspartate Amino Transferase 42 U/L (5-31); Bilirubin Direct 0.2 mg/dL (0.0-0.5); Bilirubin Total 0.2 mg/dL (0.0-1.0); Blood Urea Nitrogen 7 mg/dL (9-16); C Reactive Protein 0.99 mg/dL (< or = 0.50); Calcium 9.5 mg/dL (8.4-10.2); Carbon Dioxide 26 mmol/L (22-29); Chloride 104 mmol/L (96-108); Creatinine Clr Calc Pharmacy 150.1; Estimated Glomerular Filt Rate > 60; Glucose Random 98 mg/dL (60-115); Lipase 36 U/L (8-78); Potassium 3.7 mmol/L (3.3-5.1); Sodium 140 mmol/L (135-145); Total Protein 8.2 g/dL (6.5-8.0)
[2021-11-01 20:15] LABS: COVID-19 Test Negative (Negative)
--- NOTE | 2021-11-01 20:16 | ED_ITS ---
HPI - Ear Problem General Chief complaint: Ear Problems Stated complaint: left ear pain and bleeding Time Seen by Provider: 11/01/21 19:19 Source: patient Mode of arrival: ambulatory History of Present Illness HPI Narrative: 31-year-old female with a past medical history of anxiety, asthma, depression, HTN, presenting to the ED complaining of left ear pain/pressure radiating to neck since yesterday. Reports woke up to dry blood on foot yesterday. Also reports intermittent left shoulder pain with associated LUE tingling & intermittent left chest discomfort. Denies fever, chills, sore throat, cough, SOB, pedal edema, calf pain, abdominal pain, nausea/vomiting, dysuria/hematuria MD Complaint: ear pain and ear discharge Location: left ear Duration: constant Related Data Home Medications Medication Instructions Recorded Confirmed PNV 153-FA 400 mcg-om3 35 mg-dha tab PO 07/13/20 02/08/21 25 mg-epa 5 mg-fish oil chew tablet ( Gummies) loratadine 10 mg tablet (Claritin) 10 mg PO DAILY 07/13/20 09/17/21 sertraline 50 mg tablet 50 mg PO DAILY 07/13/20 09/17/21 nifedipine 90 mg tablet,extended 90 mg PO DAILY 01/02/21 09/17/21 release ascorbic acid (vitamin C) 250 mg 250 mg PO DAILY 02/08/21 09/17/21 tablet acetaminophen 325 mg capsule 325 mg PO QID PRN 05/31/21 09/17/21 (Tylenol) lisinopril 20 1 tab PO DAILY 05/31/21 09/17/21 mg-hydrochlorothiazide 25 mg tablet Previous Rx's Medication Instructions Recorded cyanocobalamin (vitamin B-12) 500 500 mcg PO DAILY #30 tab 03/21/21 mcg tablet iron,carbonyl 65 mg-vitamin C 125 1 tab PO DAILY #30 tab 03/21/21 mg tablet,delayed release (Vitron-C) amoxicillin 875 mg-potassium 1 tab PO Q12H 7 Days #14 tab 11/01/21 clavulanate 125 mg tablet Allergies Allergy/AdvReac Type Severity Reaction Status Date / Time latex Allergy Severe Anaphylaxis Verified 09/17/21 12:53 fluticasone [Flovent HFA] Allergy Unknown face Verified 09/17/21 12:53 numbness Review of Systems Review of Systems: Constitutional: No Fever, No Chills, No Fatigue, No Malaise ENT/Mouth: No Hearing loss, +Ear Pain, No Nasal Congestion, No sore throat, No Rhinorrhea, No Swallowing Difficulty Eyes: No Eye Pain, No Swelling, No Redness, No Discharge Cardiovascular: + Chest Pain, No SOB, No Dyspnea on Exertion, No Edema, No Palpitations Respiratory: No Cough, No Dyspnea Gastrointestinal: No Nausea, No Vomiting, No Diarrhea, No Constipation, No Abdom inal pain Genitourinary: No Dysuria, No Urinary Frequency, No Hematuria, No Urgency, No Flank Pain Musculoskeletal: No joint pain, No Myalgias, No Joint Swelling Skin: No Skin Lesions, No rash Neuro: No Weakness, No Numbness, + Paresthesias, No Loss of Consciousness, No Dizziness, No Headache Yes all other systems are reviewed and are negative [facility] Past Medical History Attestation statement: The following information was validated with the patient. Medical History Adult BMI 45.0-49.9 kg/sq m (infant) History of anxiety History of asthma History of depression Hx of primary hypertension Morbid obesity with BMI of 40.0-44.9, adult Surgical History Hx of section Hx of cholecystectomy Hx of removal of cyst Hx of wisdom tooth extraction Family History Family History Mother Hx of primary hypertension History of fibromyalgia History of anxiety Hx of irritable bowel syndrome Family/Other Hx of primary hypertension History of posttraumatic stress disorder (PTSD) Family history of MS (multiple sclerosis) Maternal Grandmother Hx of diabetes mellitus Maternal Grandfather Hx of cancer of lung Paternal Grandfather Hx of aortic valve replacement, mechanical Hx of cardiac pacemaker Paternal Grandmother Hx of primary hypertension Brother No problems noted. Sister No problems noted. Social History Social History Household Members: Spouse and Children Housing: Apartment Alcohol intake: former Substance Use Type: Amphetamines and Marijuana Advance Directives: No Advance Directives Information Provided: No Patient : No Current occupational status: employed Current occupation: [employer] Current occupational exposures/hazards: No Physical Exam Vital Signs: Vital Signs: Last Vital Signs Temp 98.4 F 11/01/21 19:52 Pulse 93 11/01/21 19:52 Resp 18 11/01/21 19:52 BP 145/91 H 11/01/21 19:52 Pulse Ox 100 11/01/21 19:52 BMI result Body Mass Index 44.9 Const: General: cooperative, healthy appearing and no acute distress Orientation/consciousness: patient oriented x3 Limitations: no limitations HENMT: Head: Yes normal to inspection Ears: hearing grossly normal bilaterally, TM normal on the right, external ear abnormal auricular tenderness on the left, mastoid abnormal (+ left mastoid tenderness. No erythema or crepitus) and TM abnormal bulging on the left and with fluid behind the TM on the left General nose exam: Normal external nose present Face and sinus: Yes normal facial exam Mouth: Normal oral and palatal mucosa present Throat: Yes posterior oropharynx normal, Yes tonsils normal, Yes uvula midline, No peritonsillar mass and No uvular edema Eyes: General: appearance normal, both eyes and all related structures EOM: EOMs intact bilaterally Neck: Neck: Yes normal visual inspection, Yes no lymphadenopathy, Yes no meningeal signs and Yes supple Chest: Other: Left scapular/lateral chest wall tenderness and beneath the left breast reproducing subjective complaint. No deformity/ecchymosis or erythema. No crepitus Chest palpation & inspection: no crepitus and tenderness Resp: Effort & Inspection: normal respiratory effort and no respiratory distress Auscultation: clear to auscultation bilaterally, no rales, no rhonchi and no wheezes Cardio: Rate: regular rate Heart sounds: S1 normal heart sound present and S2 normal heart sound present GI: Inspection: Yes normal to inspection Palpation (GI): Soft to palpation, nontender, no guarding and not rigid : General: Yes CVA tenderness on the left Back/Spine/Pelvis: Back: CVA tenderness Skin: Rashes: no rashes Wounds: no wounds Neuro: General: patient oriented x3 and no meningeal signs Gait exam (Neuro): Normal gait present Extrem: General: Yes normal to inspection, Yes no pedal edema and Yes no calf tenderness Course Course Course Narrative: -- leukocytosis of 11.6. AST/ALT chronically elevated. CRP minimally elevated. ESR mildly elevated. Troponin negative. Labs otherwise unremarkable -COVID-19 negative XR chest 2V IMPRESSION: No acute cardiopulmonary findings. ? No acutely displaced rib fractures. However, if rib fractures are suspected, recommend further evaluation with a complete rib cage radiographic series. CT head/brain wo con IMPRESSION: 1.? No acute intracranial abnormality. Mastoid air cells are well aerated without findings of mastoiditis. >> results discussed with patient including worrisome signs and symptoms and strict return precautions and needed close follow-up with PCP. Patient verbalized understanding and feels safe for discharge home at this time MDM - Ear MDM Narrative Medical decision making narrative: 31-year-old female with a past medical history of anxiety, asthma, depression, HTN, presenting to the ED complaining of left ear pain/pressure radiating to neck since yesterday. Also reports intermittent left shoulder pain with associated LUE tingling & intermittent left chest discomfort. On exam vital signs stable, physical exam as above. Concern for otitis media vs mastoiditis. Rule out ACS vs costochondritis vs ? Pneumonia vs MSK pain. Symptoms atypical for PE/renal stone Plan: EKG, labs, UA, CXR, head CT, re-evaluate Medical Records Attestation: I reviewed the patient's medical records. Lab Data Attestation: I reviewed the patient's lab results. Result diagrams: 11/01/21 19:50 11/01/21 19:50 Labs: Lab Results 11/01/21 11/01/21 11/01/21 Range/Units 19:50 19:50 19:50 WBC 11.6 H (4.8-10.8) X10*3/uL RBC 4.41 (4.20-5.50) X10*6/uL Hgb 12.6 (12.0-16.0) g/dl Hct 37.0 (37.0-47.0) % MCV 83.9 (80.0-98.0) fL MCH 28.6 (27.0-33.0) pg MCHC 34.1 (31.0-35.0) g/dl RDW 12.8 (11.0-16.0) % Plt Count 390 (160-400) X10*3/uL MPV 10.5 (9.4-12.3) fL Immature Gran % (Auto) 0.3 (0.0-0.4) % Neut % (Auto) 62.1 (45-73) % Lymph % (Auto) 27.9 (20-40) % [place] % (Auto) 7.1 (2-11) % Eos % (Auto) 2.3 (0-4) % Baso % (Auto) 0.3 (0-2) % Lymph # (Auto) 3.2 (1.2-4.9) X10*3/uL [place] # (Auto) 0.8 (0.1-1.2) X10*3/uL Eos # (Auto) 0.3 (0.0-0.4) X10*3/uL Baso # (Auto) 0.0 (0.0-0.2) X10*3/uL Abs Immat Gran (auto) 0.03 (0.00-0.03) X10*3/uL Absolute Neuts (auto) 7.2 (2.0-8.3) x10*3/uL Absolute Nucleated RBC 0.000 (0.0-0.012) X10*3/uL Nucleated RBC % (auto) 0.0 (0.0-0.2) /100WBC ESR (0-20) MM/HR Sodium 140 (135-145) mmol/L Potassium 3.7 (3.3-5.1) mmol/L Chloride 104 (96-108) mmol/L Carbon Dioxide 26 (22-29) mmol/L Anion Gap 14 (12-20) BUN 7 L (9-16) mg/dL Creatinine 0.70 (0.5-1.4) mg/dL Estim Creat Clear Calc 150.1 Estimated GFR > 60 Random Glucose 98 (60-115) mg/dL Calcium 9.5 (8.4-10.2) mg/dL Magnesium 2.0 (1.6-2.6) mg/dL Total Bilirubin 0.2 (0.0-1.0) mg/dL Direct Bilirubin 0.2 (0.0-0.5) mg/dL AST 42 H (5-31) U/L ALT 53 H (0-31) U/L Alkaline Phosphatase 98 (39-117) U/L Troponin I High Sens < 3.5 (<3.5-17.0) ng/L C-Reactive Protein 0.99 H (< or = 0.50) mg/dL Total Protein 8.2 H (6.5-8.0) g/dL Albumin 4.6 (3.5-5.0) g/dL Lipase 36 (8-78) U/L COVID-19 ([facility]) (Negative) COVID-19 Clin Com 11/01/21 11/01/21 Range/Units 19:50 19:50 WBC (4.8-10.8) X10*3/uL RBC (4.20-5.50) X10*6/uL Hgb (12.0-16.0) g/dl Hct (37.0-47.0) % MCV (80.0-98.0) fL MCH (27.0-33.0) pg MCHC (31.0-35.0) g/dl RDW (11.0-16.0) % Plt Count (160-400) X10*3/uL MPV (9.4-12.3) fL Immature Gran % (Auto) (0.0-0.4) % Neut % (Auto) (45-73) % Lymph % (Auto) (20-40) % [place] % (Auto) (2-11) % Eos % (Auto) (0-4) % Baso % (Auto) (0-2) % Lymph # (Auto) (1.2-4.9) X10*3/uL [place] # (Auto) (0.1-1.2) X10*3/uL Eos # (Auto) (0.0-0.4) X10*3/uL Baso # (Auto) (0.0-0.2) X10*3/uL Abs Immat Gran (auto) (0.00-0.03) X10*3/uL Absolute Neuts (auto) (2.0-8.3) x10*3/uL Absolute Nucleated RBC (0.0-0.012) X10*3/uL Nucleated RBC % (auto) (0.0-0.2) /100WBC ESR 28 H (0-20) MM/HR Sodium (135-145) mmol/L Potassium (3.3-5.1) mmol/L Chloride (96-108) mmol/L Carbon Dioxide (22-29) mmol/L Anion Gap (12-20) BUN (9-16) mg/dL Creatinine (0.5-1.4) mg/dL Estim Creat Clear Calc Estimated GFR Random Glucose (60-115) mg/dL Calcium (8.4-10.2) mg/dL Magnesium (1.6-2.6) mg/dL Total Bilirubin (0.0-1.0) mg/dL Direct Bilirubin (0.0-0.5) mg/dL AST (5-31) U/L ALT (0-31) U/L Alkaline Phosphatase (39-117) U/L Troponin I High Sens (<3.5-17.0) ng/L C-Reactive Protein (< or = 0.50) mg/dL Total Protein (6.5-8.0) g/dL Albumin (3.5-5.0) g/dL Lipase (8-78) U/L COVID-19 ([facility]) Negative (Negative) COVID-19 Clin Com See Note ECG Data Attestation: I personally reviewed and interpreted this ECG as follows: ECG interpretation date: 11/01/21 ECG interpretation time: 09:17 Interpretation: EKG normal sinus rhythm at a rate of 81. [place] interval 160. QRS 92. QTC 497. Inverted T-wave in lead 3 and V1. No STEMI Discharge Plan Discharge Clinical Impression: Otitis media, Costochondritis Patient Disposition: Home, Self-Care Instructions: Costochondritis (ED), Ear Infection (ED) Additional Instructions: You have an ear infection. Augmentin is an antibiotic please take as prescribed. In addition take Tylenol & Motrin at home for pain/swelling. Your blood work and imaging studies were reassuring. You tested negative for COVID-19. Make she follow-up with her primary care doctor If her symptoms persist or worsen, pain becomes unbearable, you are unable to hear, have high fevers, continued bleeding from your please return to the emergency department Prescriptions: New amoxicillin-pot clavulanate 875-125 mg tablet 1 tab PO Q12H 7 Days Qty: 14 0RF No Action Vitron-C 65 mg iron- 125 mg tablet,delayed release (DR/EC) 1 tab PO DAILY Qty: 30 5RF Rx Instructions: swallow whole; do not chew/break/dissolve/open cyanocobalamin (vitamin B-12) 500 mcg tablet 500 mcg PO DAILY Qty: 30 5RF nifedipine 90 mg tablet extended release 90 mg PO DAILY 0RF loratadine [Claritin] 10 mg tablet 10 mg PO DAILY 0RF sertraline 50 mg tablet 50 mg PO DAILY 0RF Gummies 400 mcg-35 mg- 25 mg-5 mg tablet,chewable PO 0RF ascorbic acid (vitamin C) 250 mg tablet 250 mg PO DAILY 0RF lisinopril-hydrochlorothiazide 20-25 mg tablet 1 tab PO DAILY 0RF acetaminophen [Tylenol] 325 mg capsule 325 mg PO QID [id number] Referrals: Evelyn Griffith MD [Primary Care Provider] - 2 days
[2021-11-01 20:17] LABS: Troponin-I High Sensitivity < 3.5 ng/L (<3.5-17.0)
[2021-11-01 20:34] LABS: Erythrocyte Sedimentation Rate 28 MM/HR (0-20)
[2021-11-01] MEDS: Amoxicillin/Potassium Clav 875 MG TABLET PO (21:25)
[2021-11-01] MEDS: Lidocaine 4 % Patch ADH..PATCH 1 PATCH TRANSDERMA (21:25)
== END 2021-11-01 21:56 | disposition home or self-care (01) ==
PROVIDERS: Physician Assistant; Emergency Provider Internal Medicine; PCP Internal Medicine
DX: H66.92 Otitis media, unspecified, left ear (principal); M94.0 Chondrocostal junction syndrome [Tietze]; I10 Essential (primary) hypertension; Z20.822 Contact with and (suspected) exposure to COVID-19
CPT/HCPCS: 36415; 70450; 71046; 80048; 80076; 83690; 83735; 84484; 85025; 85652; 86140; 87635; 93005; 99283; 99284

== ENCOUNTER 2021-12-06 15:02 | Emergency (ER) | payer OTHER, SELFPAY ==
--- NOTE | 2021-12-06 15:16 | ED.PSYCH ---
HPI - Psych General Chief Complaint: Psychiatric Symptoms Stated Complaint: Crisis Time Seen by Provider: 12/06/21 15:16 Source: patient Mode of arrival: ambulatory History of Present Illness HPI Narrative: no thoughts to harm her baby complaint: suicidal ideation and feels depressed Onset (ago): week(s) (1) Duration: getting worse History of same: Yes Relieving factors: none Exacerbating factors: other (reports a stressful weak) Context: significant life stressor Associated psychiatric symptoms: depression and suicidal ideation Associated symptoms: denies other symptoms Treatments prior to arrival: none Related Data Home Medications Medication Instructions Recorded Confirmed Vitamin B-12 1 tab PO DAILY 12/06/21 12/06/21 Vitamin D (with calcium) 1 tab PO DAILY 12/06/21 12/06/21 cetirizine 5 mg tablet 5 mg PO DAILY 12/06/21 12/06/21 lisinopril 20 1 tab PO DAILY 12/06/21 12/06/21 mg-hydrochlorothiazide 25 mg tablet nifedipine 60 mg tablet,extended 1 tab PO DAILY 12/06/21 12/06/21 release 24 hr sertraline 100 mg tablet 1 tab PO DAILY 12/06/21 12/06/21 Allergies Allergy/AdvReac Type Severity Reaction Status Date / Time latex Allergy Severe Anaphylaxis Verified 09/17/21 12:53 fluticasone [Flovent HFA] Allergy Unknown face Verified 09/17/21 12:53 numbness Review of Systems Review of Systems: Constitutional : No Fever, No Chills ENT/Mouth : No Ear Pain, No Nasal Congestion, No sore throat Eyes: No Eye Pain, No Swelling, No Redness Cardiovascular : No Chest Pain, No SOB Respiratory : No Cough, No Sputum, No Dyspnea Gastrointestinal : No Nausea, No Vomiting, No Diarrhea, No Hematochezia, No Melena Genitourinary : No Dysuria, No Urinary Frequency, No Hematuria Musculoskeletal : No Myalgias Skin : No Skin Lesions, No rash Neuro : No Weakness, No Numbness, No Paresthesias, No Dizziness, No Headache Psych : positive Anxiety, positive Depression, positive SI no HI Heme/Lymph: No Lymphadenopathy Endocrine : No Polyuria, No Polydipsia All other systems reviewed and are negative [facility] Past Medical History Attestation statement: The following information was validated with the patient. Medical History Adult BMI 45.0-49.9 kg/sq m () History of anxiety History of asthma History of depression Hx of primary hypertension Morbid obesity with BMI of 40.0-44.9, adult Surgical History Hx of section Hx of cholecystectomy Hx of removal of cyst Hx of wisdom tooth extraction Family History Family History Mother Hx of primary hypertension History of fibromyalgia History of anxiety Hx of irritable bowel syndrome Family/Other Hx of primary hypertension History of posttraumatic stress disorder (PTSD) Family history of MS (multiple sclerosis) Maternal Grandmother Hx of diabetes mellitus Maternal Grandfather Hx of cancer of lung Paternal Grandfather Hx of aortic valve replacement, mechanical Hx of cardiac pacemaker Paternal Grandmother Hx of primary hypertension Brother No problems noted. Sister No problems noted. Social History Social History Household Members: Spouse and Children Housing: Apartment Alcohol intake: former Substance Use Type: Amphetamines and Marijuana Advance Directives: No Advance Directives Information Provided: No Patient : No Current occupational status: employed Current occupation: [employer] Current occupational exposures/hazards: No Physical Exam Vital Signs: Vital Signs: Last Vital Signs Temp 98.4 F 12/06/21 15:18 Pulse 90 12/06/21 15:18 Resp 18 12/06/21 15:18 BP 130/94 H 12/06/21 15:18 Pulse Ox 97 12/06/21 15:18 BMI result Body Mass Index 44.9 Appearance: Alert. Oriented X3. No acute distress. Calm and cooperative Eyes: Pupils equal, round and reactive to light. ENT: Pharynx normal. Neck: Normal inspection. Neck supple. CVS: Normal heart rate and rhythm. Pulses normal. Respiratory: No respiratory distress. Breath sounds normal. Abdomen: Soft and nontender. Skin: Skin warm and dry. Normal skin color. Normal skin turgor. Extremities: No lower extremity edema. No calf ttp Neuro: Oriented X 3. No motor deficit. No sensory deficit. CN2-12 intact. Course Course Course Narrative: cleared by N to partial program, safety plan with in place MDM - Psych MDM Narrative Medical decision making narrative: 31 yo female with hx of PP depression here with what she reports is a bad week and c/o depression and thoughts of SI - she does not have thoughts to harm her baby or hallucinations. At this time will obtain labs and refer to [facility] Esparza per their recommendation Lab Data Result diagrams: 12/06/21 16:08 12/06/21 16:08 Labs: Lab Results 12/06/21 12/06/21 12/06/21 Range/Units 15:33 15:33 15:33 WBC (4.8-10.8) X10*3/uL RBC (4.20-5.50) X10*6/uL Hgb (12.0-16.0) g/dl Hct (37.0-47.0) % MCV (80.0-98.0) fL MCH (27.0-33.0) pg MCHC (31.0-35.0) g/dl RDW (11.0-16.0) % Plt Count (160-400) X10*3/uL MPV (9.4-12.3) fL Immature Gran % (Auto) (0.0-0.4) % Neut % (Auto) (45-73) % Lymph % (Auto) (20-40) % [place] % (Auto) (2-11) % Eos % (Auto) (0-4) % Baso % (Auto) (0-2) % Lymph # (Auto) (1.2-4.9) X10*3/uL [place] # (Auto) (0.1-1.2) X10*3/uL Eos # (Auto) (0.0-0.4) X10*3/uL Baso # (Auto) (0.0-0.2) X10*3/uL Abs Immat Gran (auto) (0.00-0.03) X10*3/uL Absolute Neuts (auto) (2.0-8.3) x10*3/uL Absolute Nucleated RBC (0.0-0.012) X10*3/uL Nucleated RBC % (auto) (0.0-0.2) /100WBC Urine Test NEGATIVE (NEGATIVE) Urine Opiates Screen Not Detected (Not Detect) Urine Fentanyl Screen Not Detected (Not Detect) Ur Barbiturates Screen Not Detected (Not Detect) Ur Phencyclidine Scrn Not Detected (Not Detect) Ur Amphetamines Screen Not Detected (Not Detect) U Benzodiazepines Scrn Not Detected (Not Detect) Urine Cocaine Screen Not Detected (Not Detect) U Marijuana (THC) Screen Not Detected (Not Detect) Ethyl Alcohol mg/dL COVID-19 ([facility]) Negative (Negative) COVID-19 Clin Com See Note 12/06/21 12/06/21 Range/Units 16:08 16:08 WBC 10.9 H (4.8-10.8) X10*3/uL RBC 4.25 (4.20-5.50) X10*6/uL Hgb 12.0 (12.0-16.0) g/dl Hct 36.4 L (37.0-47.0) % MCV 85.6 (80.0-98.0) fL MCH 28.2 (27.0-33.0) pg MCHC 33.0 (31.0-35.0) g/dl RDW 13.1 (11.0-16.0) % Plt Count 437 H (160-400) X10*3/uL MPV 10.7 (9.4-12.3) fL Immature Gran % (Auto) 0.3 (0.0-0.4) % Neut % (Auto) 66.5 (45-73) % Lymph % (Auto) 23.5 (20-40) % [place] % (Auto) 7.3 (2-11) % Eos % (Auto) 1.8 (0-4) % Baso % (Auto) 0.6 (0-2) % Lymph # (Auto) 2.6 (1.2-4.9) X10*3/uL [place] # (Auto) 0.8 (0.1-1.2) X10*3/uL Eos # (Auto) 0.2 (0.0-0.4) X10*3/uL Baso # (Auto) 0.1 (0.0-0.2) X10*3/uL Abs Immat Gran (auto) 0.03 (0.00-0.03) X10*3/uL Absolute Neuts (auto) 7.2 (2.0-8.3) x10*3/uL Absolute Nucleated RBC 0.000 (0.0-0.012) X10*3/uL Nucleated RBC % (auto) 0.0 (0.0-0.2) /100WBC Urine Test (NEGATIVE) Urine Opiates Screen (Not Detect) Urine Fentanyl Screen (Not Detect) Ur Barbiturates Screen (Not Detect) Ur Phencyclidine Scrn (Not Detect) Ur Amphetamines Screen (Not Detect) U Benzodiazepines Scrn (Not Detect) Urine Cocaine Screen (Not Detect) U Marijuana (THC) Screen (Not Detect) Ethyl Alcohol < 10 mg/dL COVID-19 ([facility]) (Negative) COVID-19 Clin Com Discharge Plan Discharge Clinical Impression: Depression Qualifiers: Depression Type: unspecified Qualified Code(s): F32.A - Depression, unspecified Patient Disposition: Home, Self-Care Instructions: Depression (ED) Additional Instructions: return to ED for any worsening symptoms or concerns N is planning for partial day program for your depression you are not anemic Prescriptions: No Action sertraline 100 mg tablet 1 tab PO DAILY 0RF nifedipine 60 mg tablet extended release 24 hr 1 tab PO DAILY 0RF lisinopril-hydrochlorothiazide 20-25 mg tablet 1 tab PO DAILY 0RF cetirizine [Zyrtec] 5 mg Tablet 5 mg PO DAILY 0RF Vitamin B-12 1 tab 1 tab PO DAILY 0RF Vitamin D (with calcium) 1 tab 1 tab PO DAILY 0RF Stand Alone Forms: Work/School Release
[2021-12-06 15:18] VITALS: BP 130/94; PULSE 90; RESP 18; TEMP 36.9; O2SAT 97; BMI 44.9
[2021-12-06 15:43] LABS: UPreg QC Valid YES; Urine Pregnancy NEGATIVE (NEGATIVE)
[2021-12-06 15:58] LABS: Amphetamine Screen Urine Not Detected (Not Detect); Barbiturates, Urine Not Detected (Not Detect); Benzodiazepines Screen Urine Not Detected (Not Detect); COVID-19 Test Negative (Negative); Cannabinoid Screen Urine Not Detected (Not Detect); Cocaine Screen Urine Not Detected (Not Detect); Fentanyl, urine Not Detected (Not Detect); IDNOW Serial# 16C4AD1C; Opiate Screen Urine Not Detected (Not Detect); Phencyclidine Screen Urine Not Detected (Not Detect)
[2021-12-06 16:12] LABS: MANUAL DIFF FLAG NO
[2021-12-06 16:17] LABS: Basophils Absolute Auto 0.1 X10*3/uL (0.0-0.2); Basophils Percent Auto 0.6 % (0-2); Eosinophils Absolute Auto 0.2 X10*3/uL (0.0-0.4); Eosinophils Percent Auto 1.8 % (0-4); Hematocrit 36.4 % (37.0-47.0); Imm Gran Abs Auto 0.03 X10*3/uL (0.00-0.03); Imm Gran Pct Auto 0.3 % (0.0-0.4); Lymphocytes Absolute Auto 2.6 X10*3/uL (1.2-4.9); Lymphocytes Percent Auto 23.5 % (20-40); Mean Corpuscular Hemoglobin 28.2 pg (27.0-33.0); Mean Corpuscular Volume 85.6 fL (80.0-98.0); Mean Platelet Volume 10.7 fL (9.4-12.3); Monocytes Absolute Auto 0.8 X10*3/uL (0.1-1.2); Monocytes Percent Auto 7.3 % (2-11); Neutrophils Absolute Auto 7.2 x10*3/uL (2.0-8.3); Neutrophils Percent Auto 66.5 % (45-73); Platelet Count 437 X10*3/uL (160-400); Red Blood Count 4.25 X10*6/uL (4.20-5.50); Red Cell Distribution Width 13.1 % (11.0-16.0); White Blood Count 10.9 X10*3/uL (4.8-10.8)
[2021-12-06 16:27] LABS: Ethanol < 10 mg/dL
[2021-12-06 18:07] LABS: Alanine Aminotransferase 55 U/L (0-31); Albumin Level 4.4 g/dL (3.5-5.0); Alkaline Phosphatase 91 U/L (39-117); Anion Gap 17 (12-20); Aspartate Amino Transferase 40 U/L (5-31); Bilirubin Direct < 0.2 mg/dL (0.0-0.5); Bilirubin Total 0.3 mg/dL (0.0-1.0); Blood Urea Nitrogen 12 mg/dL (9-16); Calcium 10.2 mg/dL (8.4-10.2); Carbon Dioxide 22 mmol/L (22-29); Chloride 105 mmol/L (96-108); Creatinine Clr Calc Pharmacy 159.2; Estimated Glomerular Filt Rate > 60; Glucose Random 93 mg/dL (60-115); Potassium 4.3 mmol/L (3.3-5.1); Sodium 140 mmol/L (135-145); Total Protein 8.1 g/dL (6.5-8.0)
--- NOTE | 2021-12-06 19:53 | MHC.CARE ---
[facility] REFERRAL FAXED.
== END 2021-12-06 18:06 | disposition home or self-care (01) ==
PROVIDERS: Emergency Provider Emergency Medicine; PCP Internal Medicine
DX: F32.A Depression, unspecified (principal); R45.851 Suicidal ideations; Z20.822 Contact with and (suspected) exposure to COVID-19; F41.9 Anxiety disorder, unspecified; I10 Essential (primary) hypertension; Z79.899 Other long term (current) drug therapy; F12.90 Cannabis use, unspecified, uncomplicated
CPT/HCPCS: 80048; 80076; 80307; 81025; 82077; 85025; 87635; 99283; 99284

== ENCOUNTER 2021-12-17 10:02 | Outpatient (REF) | payer OTHER, SELFPAY ==
[2021-12-17 10:20] LABS: MANUAL DIFF FLAG NO
[2021-12-17 10:42] LABS: Basophils Absolute Auto 0.1 X10*3/uL (0.0-0.2); Basophils Percent Auto 0.5 % (0-2); Eosinophils Absolute Auto 0.2 X10*3/uL (0.0-0.4); Eosinophils Percent Auto 1.4 % (0-4); Hematocrit 37.5 % (37.0-47.0); Hemoglobin 12.3 g/dl (12.0-16.0); Imm Gran Abs Auto 0.02 X10*3/uL (0.00-0.03); Imm Gran Pct Auto 0.2 % (0.0-0.4); Lymphocytes Absolute Auto 2.7 X10*3/uL (1.2-4.9); Lymphocytes Percent Auto 25.5 % (20-40); Mean Corpuscular HGB Conc 32.8 g/dl (31.0-35.0); Mean Corpuscular Hemoglobin 28.1 pg (27.0-33.0); Mean Corpuscular Volume 85.6 fL (80.0-98.0); Mean Platelet Volume 10.9 fL (9.4-12.3); Monocytes Absolute Auto 0.9 X10*3/uL (0.1-1.2); Neutrophils Absolute Auto 6.9 x10*3/uL (2.0-8.3); Neutrophils Percent Auto 64.4 % (45-73); Platelet Count 446 X10*3/uL (160-400); Red Blood Count 4.38 X10*6/uL (4.20-5.50); Red Cell Distribution Width 13.2 % (11.0-16.0); White Blood Count 10.7 X10*3/uL (4.8-10.8)
[2021-12-17 11:09] LABS: Alanine Aminotransferase 60 U/L (0-31); Albumin Level 4.7 g/dL (3.5-5.0); Alkaline Phosphatase 89 U/L (39-117); Anion Gap 14 (12-20); Aspartate Amino Transferase 37 U/L (5-31); Bilirubin Total 0.5 mg/dL (0.0-1.0); Blood Urea Nitrogen 9 mg/dL (9-16); Calcium 10.3 mg/dL (8.4-10.2); Carbon Dioxide 25 mmol/L (22-29); Chloride 104 mmol/L (96-108); Cholesterol 251 mg/dL; Estimated Glomerular Filt Rate > 60; Glucose Random 87 mg/dL (60-115); HDL Cholesterol 40 mg/dL; LDL Cholesterol Calculated 163 mg/dl; Sodium 139 mmol/L (135-145); Total Protein 8.2 g/dL (6.5-8.0); Triglycerides 240 mg/dL
[2021-12-17 11:54] LABS: Creatinine Urine 51.05 mg/dL; Total Protein Urine Random < 7 mg/dL (<12)
== END 2021-12-17 10:03 | disposition home or self-care (01) ==
LOC: HO.LAB 10:02
PROVIDERS: PCP Internal Medicine; Visit Provider Internal Medicine
DX: Z00.00 Encounter for general adult medical examination without abnormal findings (principal); E66.01 Morbid (severe) obesity due to excess calories; F32.9 Major depressive disorder, single episode, unspecified; I10 Essential (primary) hypertension; M54.16 Radiculopathy, lumbar region
CPT/HCPCS: 36415; 80053; 80061; 84156; 84443; 85025

== ENCOUNTER 2022-02-06 14:17 | Emergency (ER) | payer OTHER, SELFPAY ==
[2022-02-06 14:22] VITALS: BP 115/79; PULSE 104; RESP 20; TEMP 36.2; O2SAT 97; BMI 39.1
--- NOTE | 2022-02-06 14:35 | ECG_ITS ---
Test Reason : cp Blood Pressure : / mmHG Vent. Rate : 096 BPM Atrial Rate : 096 BPM P-R Int : 152 ms QRS Dur : 090 ms QT Int : 352 ms P-R-T Axes : 046 024 000 degrees QTc Int : 444 ms Normal sinus rhythm Minimal voltage criteria for LVH, may be normal variant ( R in aVL ) Possible Inferior infarct (cited on or before 26-FEB-2020) Cannot rule out Anterior infarct (cited on or before 26-FEB-2020) Abnormal ECG When compared with ECG of 01-NOV-2021 21:17, QT has shortened Referred By: Generic ED Physician Electronically Signed By:OZZY ANDINO
--- NOTE | 2022-02-06 14:36 | PC.NURSE ---
DURING LAB DRAW PT STATED TO PCT SHE HAS CHEST TIGHTNESS. EKG WAS ORDERED.
[2022-02-06 15:04] LABS: MANUAL DIFF FLAG NO
[2022-02-06 15:08] LABS: Basophils Percent Auto 0.2 % (0-2); Eosinophils Percent Auto 0.3 % (0-4); Hematocrit 37.6 % (37.0-47.0); Hemoglobin 12.7 g/dl (12.0-16.0); Imm Gran Abs Auto 0.05 X10*3/uL (0.00-0.03); Imm Gran Pct Auto 0.4 % (0.0-0.4); Lymphocytes Absolute Auto 1.1 X10*3/uL (1.2-4.9); Lymphocytes Percent Auto 9.4 % (20-40); Mean Corpuscular HGB Conc 33.8 g/dl (31.0-35.0); Mean Corpuscular Hemoglobin 28.2 pg (27.0-33.0); Mean Corpuscular Volume 83.6 fL (80.0-98.0); Mean Platelet Volume 10.9 fL (9.4-12.3); Monocytes Percent Auto 8.4 % (2-11); Neutrophils Absolute Auto 9.6 x10*3/uL (2.0-8.3); Neutrophils Percent Auto 81.3 % (45-73); Platelet Count 431 X10*3/uL (160-400); Red Cell Distribution Width 13.2 % (11.0-16.0); White Blood Count 11.8 X10*3/uL (4.8-10.8)
[2022-02-06 15:19] LABS: Anion Gap 14 (12-20); Blood Urea Nitrogen 12 mg/dL (9-16); Calcium 10.1 mg/dL (8.4-10.2); Carbon Dioxide 20 mmol/L (22-29); Chloride 103 mmol/L (96-108); Creatinine Clr Calc Pharmacy 118.3; Estimated Glomerular Filt Rate > 60; Glucose Random 100 mg/dL (60-115); Potassium 3.2 mmol/L (3.3-5.1); Sodium 134 mmol/L (135-145)
[2022-02-06 15:33] LABS: COVID-19 Test Negative (Negative); IDNOW Serial# 16C4AD1C
[2022-02-06 15:34] LABS: Influenza A Negative (Negative); Influenza B2 Negative (Negative)
[2022-02-06 16:39] VITALS: BP 127/76; PULSE 100; RESP 18; TEMP 36.4; O2SAT 100
--- NOTE | 2022-02-06 16:39 | ED.NAVMDI ---
HPI - Nausea/Vomiting/Diarrhea General Chief complaint: Weakness Stated complaint: not responding Time Seen by Provider: 02/06/22 15:59 Source: patient Mode of arrival: ambulatory Limitations: no limitations History of Present Illness HPI Narrative: Patient comes to the emergency room complaining of nausea, vomiting and diarrhea since yesterday. Patient complaining also of lightheadedness. Patient states that she has tried multiple doses of loperamide without any relief. Patient tries to drink fluids but she vomits immediately. Patient complaining of chills, no fever. Related Data Home Medications Medication Instructions Recorded Confirmed Vitamin B-12 1 tab PO DAILY 12/06/21 12/06/21 Vitamin D (with calcium) 1 tab PO DAILY 12/06/21 12/06/21 cetirizine 5 mg tablet 5 mg PO DAILY 12/06/21 12/06/21 lisinopril 20 1 tab PO DAILY 12/06/21 12/06/21 mg-hydrochlorothiazide 25 mg tablet nifedipine 60 mg tablet,extended 1 tab PO DAILY 12/06/21 12/06/21 release 24 hr sertraline 100 mg tablet 1 tab PO DAILY 12/06/21 12/06/21 Previous Rx's Medication Instructions Recorded diphenoxylate-atropine 2.5 1 tab PO BEDTIME PRN #5 tab 02/06/22 mg-0.025 mg tablet (Lomotil) ondansetron 4 mg disintegrating 4 mg PO Q6H PRN #14 tab 02/06/22 tablet Allergies Allergy/AdvReac Type Severity Reaction Status Date / Time latex Allergy Severe Anaphylaxis Verified 09/17/21 12:53 fluticasone [Flovent HFA] Allergy Unknown face Verified 09/17/21 12:53 numbness Review of Systems Review of Systems: Constitutional : No Weight loss, No Fever, complaining ofChills, No Night Sweats, No Fatigue, No Malaise ENT/Mouth : No Hearing loss, No Ear Pain, No Nasal Congestion, No Sinus Pain, No Hoarseness, No sore throat, No Rhinorrhea, No Swallowing Difficulty Eyes: No Eye Pain, No Swelling, No Redness, No Foreign Body, No Discharge, No Vision Changes Cardiovascular : No Chest Pain, No SOB, No Dyspnea on Exertion, No Orthopnea, No Edema, No Palpitations Respiratory : No Cough, No Sputum, No Wheezing, No Smoke Exposure, No Dyspnea Gastrointestinal : Complaining of nausea vomiting and diarrhea. No Constipation, No abdominal Pain, No Hematochezia, No Melena Genitourinary : no irregular bleeding, No Dysuria, No Urinary Frequency, No Hematuria, No Urinary Incontinence, No Urgency, No Flank Pain, No Urinary Flow Changes, No Hesitancy Musculoskeletal : No joint pain, No Myalgias, No Joint Swelling Skin : No Skin Lesions, No rash Neuro : No Weakness, No Numbness, No Paresthesias, No Loss of Consciousness, complaining of feeling lightheaded, No Headache Psych : No Anxiety/Panic, No Depression, No SI/HI/AH/VH, No Social Issues, Heme/Lymph: No Bruising, No Bleeding,No Lymphadenopathy Endocrine : No Polyuria, No Polydipsia, No Temperature Intolerance PMFSH Past Medical History Medical History Adult BMI 45.0-49.9 kg/sq m (infant) History of anxiety History of asthma History of depression Hx of primary hypertension Morbid obesity with BMI of 40.0-44.9, adult Surgical History Hx of section Hx of cholecystectomy Hx of removal of cyst Hx of wisdom tooth extraction Family History Family History Mother Hx of primary hypertension History of fibromyalgia History of anxiety Hx of irritable bowel syndrome Family/Other Hx of primary hypertension History of posttraumatic stress disorder (PTSD) Family history of MS (multiple sclerosis) Maternal Grandmother Hx of diabetes mellitus Maternal Grandfather Hx of cancer of lung Paternal Grandfather Hx of aortic valve replacement, mechanical Hx of cardiac pacemaker Paternal Grandmother Hx of primary hypertension Brother No problems noted. Sister No problems noted. Social History Social History Household Members: Spouse and Children Housing: Apartment Alcohol intake: never Smoked in Last 30 Days: Yes Use of substances other than those prescribed or required for medical reasons: No Substance Use Type: Marijuana Advance Directives: No Advance Directives Information Provided: No Patient : No Current occupational status: employed Current occupation: [id number] Current occupational exposures/hazards: No Physical Exam Vital Signs: Vital Signs: Last Vital Signs Temp 97.6 F 02/06/22 16:39 Pulse 102 H 02/06/22 18:07 Resp 18 02/06/22 16:39 BP 142/97 H 02/06/22 18:07 Pulse Ox 100 02/06/22 16:39 BMI result Body Mass Index 39.1 Course Course Course Narrative: Patient is receiving IV fluids, Zofran and p.o. potassium Patient overall feeling much better. Patient was able to ambulate to the restroom without dizziness/lightheadedness. I discussed with the patient that the prescription of Lomotil should be kept in a safe place, away from children MDM - Nausea/Vomiting/Diarrhea Lab Data Result diagrams: 02/06/22 14:40 02/06/22 14:40 Labs: Lab Results 02/06/22 02/06/22 02/06/22 Range/Units 14:40 14:40 14:40 WBC 11.8 H (4.8-10.8) X10*3/uL RBC 4.50 (4.20-5.50) X10*6/uL Hgb 12.7 (12.0-16.0) g/dl Hct 37.6 (37.0-47.0) % MCV 83.6 (80.0-98.0) fL MCH 28.2 (27.0-33.0) pg MCHC 33.8 (31.0-35.0) g/dl RDW 13.2 (11.0-16.0) % Plt Count 431 H (160-400) X10*3/uL MPV 10.9 (9.4-12.3) fL Immature Gran % (Auto) 0.4 (0.0-0.4) % Neut % (Auto) 81.3 H (45-73) % Lymph % (Auto) 9.4 L (20-40) % [place] % (Auto) 8.4 (2-11) % Eos % (Auto) 0.3 (0-4) % Baso % (Auto) 0.2 (0-2) % Lymph # (Auto) 1.1 L (1.2-4.9) X10*3/uL [place] # (Auto) 1.0 (0.1-1.2) X10*3/uL Eos # (Auto) 0.0 (0.0-0.4) X10*3/uL Baso # (Auto) 0.0 (0.0-0.2) X10*3/uL Abs Immat Gran (auto) 0.05 H (0.00-0.03) X10*3/uL Absolute Neuts (auto) 9.6 H (2.0-8.3) x10*3/uL Absolute Nucleated RBC 0.000 (0.0-0.012) X10*3/uL Nucleated RBC % (auto) 0.0 (0.0-0.2) /100WBC Sodium 134 L (135-145) mmol/L Potassium 3.2 L (3.3-5.1) mmol/L Chloride 103 (96-108) mmol/L Carbon Dioxide 20 L (22-29) mmol/L Anion Gap 14 (12-20) BUN 12 (9-16) mg/dL Creatinine 0.82 (0.5-1.4) mg/dL Estim Creat Clear Calc 118.3 Estimated GFR > 60 Random Glucose 100 (60-115) mg/dL Calcium 10.1 (8.4-10.2) mg/dL Troponin I High Sens (<3.5-17.0) ng/L Beta HCG, Quant < 2 mIU/mL COVID-19 ([facility]) Negative (Negative) COVID-19 Clin Com See Note Influenza Type A ([facility]) (Negative) Influenza Type B ([facility]) (Negative) Influenza A & B Note 02/06/22 02/06/22 Range/Units 14:40 14:40 WBC (4.8-10.8) X10*3/uL RBC (4.20-5.50) X10*6/uL Hgb (12.0-16.0) g/dl Hct (37.0-47.0) % MCV (80.0-98.0) fL MCH (27.0-33.0) pg MCHC (31.0-35.0) g/dl RDW (11.0-16.0) % Plt Count (160-400) X10*3/uL MPV (9.4-12.3) fL Immature Gran % (Auto) (0.0-0.4) % Neut % (Auto) (45-73) % Lymph % (Auto) (20-40) % [place] % (Auto) (2-11) % Eos % (Auto) (0-4) % Baso % (Auto) (0-2) % Lymph # (Auto) (1.2-4.9) X10*3/uL [place] # (Auto) (0.1-1.2) X10*3/uL Eos # (Auto) (0.0-0.4) X10*3/uL Baso # (Auto) (0.0-0.2) X10*3/uL Abs Immat Gran (auto) (0.00-0.03) X10*3/uL Absolute Neuts (auto) (2.0-8.3) x10*3/uL Absolute Nucleated RBC (0.0-0.012) X10*3/uL Nucleated RBC % (auto) (0.0-0.2) /100WBC Sodium (135-145) mmol/L Potassium (3.3-5.1) mmol/L Chloride (96-108) mmol/L Carbon Dioxide (22-29) mmol/L Anion Gap (12-20) BUN (9-16) mg/dL Creatinine (0.5-1.4) mg/dL Estim Creat Clear Calc Estimated GFR Random Glucose (60-115) mg/dL Calcium (8.4-10.2) mg/dL Troponin I High Sens < 3.5 (<3.5-17.0) ng/L Beta HCG, Quant mIU/mL COVID-19 ([facility]) (Negative) COVID-19 Clin Com Influenza Type A ([facility]) Negative (Negative) Influenza Type B ([facility]) Negative (Negative) Influenza A & B Note See Note ECG Data Attestation: I personally reviewed and interpreted this ECG as follows: (Sinus rhythm, heart rate 96, no ST segment depression or elevation, nonspecific T-wave inversion in lead 3 and AVF, QTC 444) Discharge Plan Discharge Clinical Impression: Nausea & vomiting, Diarrhea Patient Disposition: Home, Self-Care Instructions: Acute Nausea and Vomiting (ED), Acute Diarrhea (ED) Additional Instructions: Please follow-up with your primary care physician tomorrow. If you have any worsening or new symptoms, please return to the emergency room or call 911 Prescriptions: New ondansetron 4 mg tablet,disintegrating 4 mg PO Q6H PRN (Reason: nausea and vomiting) Qty: 14 0RF diphenoxylate-atropine [Lomotil] 2.5-0.025 mg tablet 1 tab PO BEDTIME PRN (Reason: diarrhea) Qty: 5 0RF No Action sertraline 100 mg tablet 1 tab PO DAILY 0RF nifedipine 60 mg tablet extended release 24 hr 1 tab PO DAILY 0RF lisinopril-hydrochlorothiazide 20-25 mg tablet 1 tab PO DAILY 0RF cetirizine [Zyrtec] 5 mg Tablet 5 mg PO DAILY 0RF Vitamin B-12 1 tab 1 tab PO DAILY 0RF Vitamin D (with calcium) 1 tab 1 tab PO DAILY 0RF
[2022-02-06] MEDS: 0.9 % Sodium Chloride 1,000 ML 999 ML IVCONT (16:50)
[2022-02-06 16:52] LABS: HCG Quantitative < 2 mIU/mL
[2022-02-06 17:07] LABS: Troponin-I High Sensitivity < 3.5 ng/L (<3.5-17.0)
[2022-02-06] MEDS: Potassium Chloride Packet 20 MEQ PACKET 40 MEQ PO (17:14)
[2022-02-06] MEDS: ondansetron HCL 4 MG/2 ML VIAL IVPUSH (17:15)
[2022-02-06 18:07] VITALS: BP 129/83; BP 142/97; BP 145/99; PULSE 102; PULSE 114; PULSE 99
== END 2022-02-06 19:23 | disposition home or self-care (01) ==
PROVIDERS: Emergency Provider Emergency Medicine; PCP Internal Medicine
DX: R53.1 Weakness (principal); R42 Dizziness and giddiness; R11.2 Nausea with vomiting, unspecified; Z20.822 Contact with and (suspected) exposure to COVID-19; Z79.899 Other long term (current) drug therapy
CPT/HCPCS: 80048; 84484; 84702; 85025; 87502; 87635; 93005; 96361; 96374; 99284; J2405

== ENCOUNTER 2022-03-31 09:38 | Outpatient (REF) | payer OTHER, SELFPAY ==
[2022-03-31 10:31] LABS: Alanine Aminotransferase 29 U/L (0-31); Albumin Level 4.4 g/dL (3.5-5.0); Alkaline Phosphatase 71 U/L (39-117); Anion Gap 12 (12-20); Aspartate Amino Transferase 21 U/L (5-31); Bilirubin Total 0.3 mg/dL (0.0-1.0); Blood Urea Nitrogen 8 mg/dL (9-16); Calcium 9.7 mg/dL (8.4-10.2); Carbon Dioxide 25 mmol/L (22-29); Chloride 105 mmol/L (96-108); Estimated Glomerular Filt Rate > 60; Glucose Random 91 mg/dL (60-115); Potassium 4.2 mmol/L (3.3-5.1); Sodium 138 mmol/L (135-145); Total Protein 7.6 g/dL (6.5-8.0)
== END 2022-03-31 09:39 | disposition home or self-care (01) ==
LOC: HO.LAB 09:38
PROVIDERS: PCP Internal Medicine; Visit Provider Internal Medicine
DX: E78.00 Pure hypercholesterolemia, unspecified (principal); F43.12 Post-traumatic stress disorder, chronic; R42 Dizziness and giddiness; I10 Essential (primary) hypertension
CPT/HCPCS: 36415; 80053

== ENCOUNTER 2022-06-17 11:37 | Outpatient (REF) | payer OTHER, SELFPAY ==
[2022-06-17 11:57] LABS: MANUAL DIFF FLAG NO
[2022-06-17 13:37] LABS: Basophils Absolute Auto 0.1 X10*3/uL (0.0-0.2); Basophils Percent Auto 0.5 % (0-2); Eosinophils Absolute Auto 0.2 X10*3/uL (0.0-0.4); Eosinophils Percent Auto 1.8 % (0-4); Hemoglobin 11.7 g/dl (12.0-16.0); Imm Gran Abs Auto 0.04 X10*3/uL (0.00-0.03); Imm Gran Pct Auto 0.4 % (0.0-0.4); Lymphocytes Absolute Auto 2.7 X10*3/uL (1.2-4.9); Lymphocytes Percent Auto 24.8 % (20-40); Mean Corpuscular HGB Conc 34.4 g/dl (31.0-35.0); Mean Corpuscular Hemoglobin 30.2 pg (27.0-33.0); Mean Corpuscular Volume 87.6 fL (80.0-98.0); Mean Platelet Volume 11.4 fL (9.4-12.3); Monocytes Absolute Auto 0.7 X10*3/uL (0.1-1.2); Monocytes Percent Auto 6.7 % (2-11); Neutrophils Absolute Auto 7.2 x10*3/uL (2.0-8.3); Neutrophils Percent Auto 65.8 % (45-73); Platelet Count 427 X10*3/uL (160-400); Red Blood Count 3.88 X10*6/uL (4.20-5.50); Red Cell Distribution Width 12.9 % (11.0-16.0)
[2022-06-17 14:10] LABS: Alanine Aminotransferase 31 U/L (0-31); Albumin Level 4.7 g/dL (3.5-5.0); Alkaline Phosphatase 60 U/L (39-117); Anion Gap 17 (12-20); Aspartate Amino Transferase 21 U/L (5-31); Bilirubin Total 0.3 mg/dL (0.0-1.0); Blood Urea Nitrogen 9 mg/dL (9-16); Calcium 10.2 mg/dL (8.4-10.2); Carbon Dioxide 25 mmol/L (22-29); Chloride 102 mmol/L (96-108); Cholesterol 214 mg/dL; Estimated Glomerular Filt Rate > 60; Glucose Random 79 mg/dL (60-115); HDL Cholesterol 38 mg/dL; LDL Cholesterol Calculated 131 mg/dl; Potassium 4.2 mmol/L (3.3-5.1); Sodium 140 mmol/L (135-145); Total Protein 8.1 g/dL (6.5-8.0); Triglycerides 225 mg/dL
== END 2022-06-17 11:38 | disposition home or self-care (01) ==
LOC: HO.LAB 11:37
PROVIDERS: PCP Internal Medicine; Visit Provider Internal Medicine
DX: E78.00 Pure hypercholesterolemia, unspecified (principal); I10 Essential (primary) hypertension
CPT/HCPCS: 36415; 80053; 80061; 85025

== ENCOUNTER 2023-09-09 09:39 | Outpatient (REF) | payer OTHER, SELFPAY ==
[2023-09-09 09:57] LABS: MANUAL DIFF FLAG NO
[2023-09-09 10:20] LABS: Basophils Absolute Auto 0.1 X10*3/uL (0.0-0.2); Basophils Percent Auto 0.7 % (0-2); Eosinophils Absolute Auto 0.4 X10*3/uL (0.0-0.4); Eosinophils Percent Auto 4.7 % (0-4); Hematocrit 35.6 % (37.0-47.0); Hemoglobin 11.8 g/dl (12.0-16.0); Imm Gran Abs Auto 0.01 X10*3/uL (0.00-0.03); Imm Gran Pct Auto 0.1 % (0.0-0.4); Lymphocytes Absolute Auto 2.3 X10*3/uL (1.2-4.9); Lymphocytes Percent Auto 28.3 % (20-40); Mean Corpuscular HGB Conc 33.1 g/dl (31.0-35.0); Mean Corpuscular Hemoglobin 30.1 pg (27.0-33.0); Mean Corpuscular Volume 90.8 fL (80.0-98.0); Mean Platelet Volume 10.7 fL (9.4-12.3); Monocytes Absolute Auto 0.6 X10*3/uL (0.1-1.2); Monocytes Percent Auto 7.6 % (2-11); Neutrophils Absolute Auto 4.7 x10*3/uL (2.0-8.3); Neutrophils Percent Auto 58.6 % (45-73); Platelet Count 391 X10*3/uL (160-400); Red Blood Count 3.92 X10*6/uL (4.20-5.50); Red Cell Distribution Width 12.1 % (11.0-16.0); White Blood Count 8.1 X10*3/uL (4.8-10.8)
[2023-09-09 11:13] LABS: Alanine Aminotransferase 13 U/L (0-31); Albumin Level 4.4 g/dL (3.5-5.0); Alkaline Phosphatase 55 U/L (39-117); Anion Gap 10 (12-20); Aspartate Amino Transferase 16 U/L (5-31); Bilirubin Total 0.7 mg/dL (0.0-1.0); Blood Urea Nitrogen 9 mg/dL (9-16); Calcium 9.7 mg/dL (8.4-10.2); Carbon Dioxide 25 mmol/L (22-29); Chloride 107 mmol/L (96-108); Cholesterol 208 mg/dL (<200); Estimated Glomerular Filt Rate > 60; Glucose Random 89 mg/dL (60-115); HDL Cholesterol 46 mg/dL (>40); LDL Cholesterol Calculated 142 mg/dL (<100); Sodium 138 mmol/L (135-145); Total Protein 7.8 g/dL (6.5-8.0); Triglycerides 103 mg/dL (<150)
[2023-09-09 11:29] LABS: Thyroid Stimulating Hormone 0.44 uIU/mL (0.32-4.0)
== END 2023-09-09 09:40 | disposition home or self-care (01) ==
LOC: HO.LAB 09:39
PROVIDERS: PCP Internal Medicine; Visit Provider Internal Medicine
DX: Z00.00 Encounter for general adult medical examination without abnormal findings (principal); E78.2 Mixed hyperlipidemia; F33.41 Major depressive disorder, recurrent, in partial remission; I10 Essential (primary) hypertension
CPT/HCPCS: 36415; 80053; 80061; 84443; 85025

== ENCOUNTER 2025-01-19 09:32 | Outpatient (REF) | payer OTHER, SELFPAY ==
[2025-01-19 11:12] LABS: Cholesterol 224 mg/dL (<200); HDL Cholesterol 50 mg/dL (>40); LDL Cholesterol Calculated 136 mg/dL (<100); Triglycerides 192 mg/dL (<150)
[2025-01-19 11:17] LABS: TSH reflex Free T4 0.54 uIU/mL (0.32-4.0)
[2025-01-20 10:33] LABS: Triiodothyronine T3 Free 3.2 pg/mL (2.3-4.2)
== END 2025-01-19 09:33 | disposition home or self-care (01) ==
LOC: HO.10HDL 09:32
PROVIDERS: Visit Provider Internal Medicine
DX: Z00.00 Encounter for general adult medical examination without abnormal findings (principal); E05.80 Other thyrotoxicosis without thyrotoxic crisis or storm; E78.00 Pure hypercholesterolemia, unspecified; I10 Essential (primary) hypertension; N62 Hypertrophy of breast
CPT/HCPCS: 36415; 80061; 84443; 84481